=== PATIENT | female | born 1945 ===

== ENCOUNTER 2017-03-15 12:38 | Observation (INO) ==
--- NOTE | 2017-03-15 13:14 | Emergency Department Note ---
Nikita Morrell Emily, am scribing for, and in the presence of, Richie Pittman MD 13:12. Zain Morrell Phillip K, MD, personally performed the services described in this documentation, ascribed by Monique Shelton in my presence, and it is both accurate and complete . Arrival - Arrival Chief Complaint: Weakness Stated Complaint: weakness ED Nursing Triage Note: Transfer from [facility] ER for further evaluation of generalized weakness and slurred speech. Lorenzo found patient with slurred speech and weakness this am. Initial blood glucose 66mg/d, given D50 1/2 amp at [facility]. Speech clear, answering questions appropriately. c/o mild weakness. Equal strength noted to upper and lower extremities. Mode of Arrival: Stretcher Limitations: No Limitations Source: Patient - History of Present Illness HPI Narrative: Pt is a 72 y/o female who was transferred from [facility] to ED for further evaluation of generalized weakness that onset today. Lorenzo found pt with slurred speech and weakness this morning, in which could not walk at all. Pt's initial blood glucose 66mg/d, given D50 1/2 amp at [facility], along with negative CT. Pt's speech is clear and answering questions appropriately. She c/ o mild weakness but has improved some since being in ED. Pt denies vision change, stroke hx, or lower extremity edema. Pt states she able to hold onto things and these sxs haven't happened before. PMHx of HTN, NIDDM, IDDM, CHF, HLD. Onset (ago): hour(s) Consistency: constant Severity: mild, moderate Severity scale (1-10): 4 Quality: other (weakness) Date of Last Menstrual Period: PM Allergies/Adverse Reactions: Allergies Allergy/AdvReac Type Severity Reaction Status Date / Time No Known Allergies Allergy Verified 03/15/17 12:40 Home Medications: Home Medications Medication Instructions Recorded Confirmed Type Furosemide Tab [Lasix Tab] 80 mg PO DAILY #30 tablet 02/26/16 02/25/17 Rx Pantoprazole Tab [Protonix Tab] 40 mg PO DAILY #30 tablet 02/26/16 02/25/17 Rx hydrALAZINE TAB [Apresoline Tab] 25 mg PO BID #60 tablet 02/26/16 02/25/17 Rx Amitriptyline [Elavil] 25 mg PO BEDTIME 03/18/16 02/25/17 History Aspirin [Ecotrin] 81 mg PO DAILY 03/18/16 02/25/17 History Albuterol Inhaler [Proventil 2 puff INH Q6H PRN #1 inhaler 04/17/16 02/25/17 Rx Inhaler] Albuterol/Ipratropium Neb [Duoneb] 3 ml RESP TX TID #90 neb 04/17/16 02/25/17 Rx Atorvastatin [Lipitor] 40 mg PO DAILY tablet 04/17/16 02/25/17 Rx glipiZIDE [Glucotrol] 5 mg PO AC BREAKFAST #30 tablet 04/17/16 02/25/17 Rx Calcium Carbonate 600 mg PO BID 02/25/17 02/25/17 History Carvedilol 12.5 mg PO DAILY 02/25/17 02/25/17 History Review of System - Review of System 12 point system: reviewed and no additional remarkable complaints except as stated - Review of System Constitutional: Present: weakness (generalized). Absent: chills, fever Respiratory: Absent: respiratory distress Cardiovascular: Absent: chest pain Gastrointestinal: Absent: abdominal pain Musculoskeletal: Absent: arm pain Skin: Absent: rash Neurological: Present: weakness (lower extremities), other (slurred speech). Absent: headache, numbness, paresthesias, confusion Medical,Surgical,& Family Hx - Medical History Cardio: History of: CHF, Hypertension, [place] Endocrine: History of: Diabetes Mellitus (IDDM), Diabetes Mellitus (NIDDM), Dyslipidemia Respiratory: History of: Asthma, Bronchitis Renal: History of: Renal Failure, Renal Problems (chronic renal insufficiency) Genitourinary: History of: Kidney Stones Gastrointestinal: History of: GERD Musculoskeletal: History of: Osteoporosis Hematology: History of: Anemia - Surgical History Cardiac Surgeries: Sugical HX of: Cardiac Surgery (CABG) Patient Denies: Cardiac Catheterization Neurologic Surgeries: Patient denies: Neurologic Surgery Abdominal Surgeries: Surgical HX of: Abdominal Surgery, Appendectomy Reproductive Surgeries: Patient denies;: Genitourinary Surgery, Gynecologic Surgery - Family History Family History: Reports;: Family Diabetes, Family Heart Disease, Family Hypertension - Social History Smoking Status: Never smoker Frequency of Alcohol Use: None Type of Drug Use: None Marital Status: Single Lives With:: Children Functional capacity: independent ambulation Exam Vital Signs: Vital Signs Temperature 97.9 F 03/15/17 12:38 Pulse Rate 71 03/15/17 12:38 Respiratory Rate 20 03/15/17 12:38 Blood Pressure 146/85 03/15/17 12:38 O2 Sat by Pulse Oximetry 100 03/15/17 12:38 - General General appearance: alert, in no apparent distress - Head Head exam: Present: atraumatic, normocephalic - Eye Eye exam: Present: PERRL, EOMI - ENT ENT exam: Present: mucous membranes moist. Absent: mucous membranes dry - Neck Neck exam: Present: full ROM, trachea midline - Chest Chest inspection: Present: symmetric chest wall rise - Respiratory Respiratory exam: Present: normal lung sounds bilaterally. Absent: respiratory distress - Cardiovascular Cardiovascular exam: Present: regular rate, normal rhythm, normal heart sounds - Extremities Exam Extremities exam: Present: full ROM. Absent: tenderness, pedal edema - Neurological Exam Neurological exam: Present: alert, oriented X3, CN II-XII intact, other ( neurovascularly intact). Absent: motor sensory deficit - Psychiatric Psychiatric exam: Present: normal affect, normal mood - Skin Skin exam: Present: warm, dry Course Course Narrative: Patient discussed with the hospitalist. Results - Labs Lab Results: I have reviewed the patients labs (Labs reviewed from [facility].) - EKG EKG results: interpreted by KESHIA, sinus rhythm (Left bundle branch block) - Diagnostic Findings Procedure: CT: report reviewed by me (CT head scan done at [facility] revealed no acute intracranial abnormality.)
--- NOTE | 2017-03-15 14:04 | Hospitalist History & Physical ---
<Kourtney Gudinoda - Last Filed: 03/15/17 13:59> Assessment and Plan (1) Weakness Status: Acute Assessment and plan: Patient reports that this is an acute onset of weakness. Initial CT scan was negative; however the patient was noted to be hypoglycemic at the time of ED presentation with a blood sugar noted at 66. The state of hypoglycemia may be a attributing factor to the patient's weakness. We will conduct a stroke workup. We will obtain MRI in a.m.. In addition we will consult physical and Occupational Therapy to evaluate and treat. Current Visit: No (2) Chronic renal insufficiency Status: Chronic Assessment and plan: BUN and creatinine noted at 49/2.7. Upon review of the medical record, the patient's BUN and creatinine was noted at 63/3.00 on the last clinical encounter on February 27, 2017. This is a moderate decrease. We will monitor closely. Current Visit: No History of Present Illness Chief complaint: Weakness History of present illness: This is a chronically ill 72-year-old female that presented to the ED at [facility] this afternoon as a transfer from the [facility] for the further evaluation of generalized weakness and slurred speech. The patient has a complex medical history significant for congestive heart failure, hypertension, myocardial infarction, iqu-rjrxyvi-bajmezfth diabetes mellitus, dyslipidemia, asthma, bronchitis, chronic renal insufficiency , renal calculi, osteoporosis, anemia, and gastroesophageal reflux disease. Patient has a surgical history significant for coronary artery bypass graft and appendectomy. The patient reported the onset of symptoms earlier this morning upon arising. Apparently, the patient's grandson discovered the patient with slurred speech and profound weakness. He attempted to assist the patient up out of bed and the patient was unable to stand. He became alarmed and transported the patient to the [facility] for further evaluation. The patient was assessed at the time of ED presentation. The patient's blood glucose was noted at 66. The patient was then given one half amp of dextrose 50 %. Labs were obtained which were significant for BUN 49, creatinine 2.17, calcium 8.1, hemoglobin 10.9, hematocrit 35.1, and glucose of 66. CT head without contrast reported no evidence of acute intracranial hemorrhage however the presence of mild lucency in the cerebral white matter consistent with microvascular disease was noted. In addition the presence of a stable chronic right basal ganglia lacunar infarct was noted in marquis white differentiation is intact with no apparent evidence of mass. The patient was subsequently transferred to [facility] for further evaluation. The patient was assessed at the time of ED presentation at [place]. At the time of presentation, the patient was noted to be coherent with clear speech and able to answer questions appropriately. The patient reported an improvement in her weakness however, denies vision changes, shortness of breath , lower extremity edema, headache, chest pain, nausea, vomiting, or recent weight gain. After brief discussion with both Dr. Pittman and Dr. Long, the patient will be admitted to the hospitalist group for continuation of care. Due to the severity of the presenting factors, a neurology consultation has been requested. Home medications have been reviewed and reconciled. CODE STATUS discussed; patient is a FULL CODE. Home Medications Medication Instructions Recorded Confirmed Type Pantoprazole Tab [Protonix Tab] 40 mg PO DAILY #30 tablet 02/26/16 03/15/17 Rx hydrALAZINE TAB [Apresoline Tab] 25 mg PO BID #60 tablet 02/26/16 03/15/17 Rx Amitriptyline [Elavil] 25 mg PO BEDTIME 03/18/16 03/15/17 History Aspirin [Ecotrin] 81 mg PO DAILY 03/18/16 03/15/17 History Albuterol/Ipratropium Neb [Duoneb] 3 ml RESP TX TID #90 neb 04/17/16 03/15/17 Rx Atorvastatin [Lipitor] 40 mg PO DAILY tablet 04/17/16 03/15/17 Rx glipiZIDE [Glucotrol] 5 mg PO AC BREAKFAST #30 tablet 04/17/16 03/15/17 Rx Calcium Carbonate 600 mg PO BID 02/25/17 03/15/17 History Carvedilol 12.5 mg PO BID 02/25/17 03/15/17 History Furosemide Tab [Lasix Tab] 80 mg PO QAM 03/15/17 03/15/17 History Allergies Allergy/AdvReac Type Severity Reaction Status Date / Time No Known Allergies Allergy Verified 03/15/17 12:40 Medical,Surgical,& Family Hx - Medical History Cardio: History of: CHF, Hypertension, [place] Endocrine: History of: Diabetes Mellitus (IDDM), Diabetes Mellitus (NIDDM), Dyslipidemia Respiratory: History of: Asthma, Bronchitis Renal: History of: Renal Failure, Renal Problems (chronic renal insufficiency) Genitourinary: History of: Kidney Stones Gastrointestinal: History of: GERD Musculoskeletal: History of: Osteoporosis Hematology: History of: Anemia - Surgical History Cardiac Surgeries: Sugical HX of: Cardiac Surgery (CABG) Patient Denies: Cardiac Catheterization Neurologic Surgeries: Patient denies: Neurologic Surgery Abdominal Surgeries: Surgical HX of: Abdominal Surgery, Appendectomy Reproductive Surgeries: Patient denies;: Genitourinary Surgery, Gynecologic Surgery - Family History Family History: Reports;: Family Diabetes, Family Heart Disease, Family Hypertension - Social History Smoking Status: Never smoker Frequency of Alcohol Use: None Type of Drug Use: None Marital Status: Single Lives With:: Children Functional capacity: independent ambulation 12 point system: reviewed and no additional remarkable complaints except as stated Exam - Constitutional Vitals: Period Temp Pulse Resp BP Sys/Edgar Pulse Ox Last 24 Hr 97.9 F-97.9 F 71-71 20-20 146-146/85-85 100 General appearance: normal weight, no acute distress - Head Head exam: Present: normal inspection, normocephalic, atraumatic - Eye Eye exam: Present: EOMI. Absent: conjunctival injection Pupils: Present: JACE, normal accommodation - ENT ENT exam: Present: normal exam, normal external ear exam, normal oropharynx - Neck Neck exam: Present: normal inspection. Absent: lymphadenopathy, meningismus, tenderness, thyromegaly - Respiratory Respiratory exam: Present: clear to auscultation bilaterally. Absent: rales, rhonchi, stridor, wheezes - Cardiovascular Cardiovascular exam: Present: regular rate and rhythm. Absent: carotid bruit, diastolic murmur, gallop, JVD, rubs, systolic murmur - GI/Abdominal GI/Abdominal exam: Present: normal bowel sounds - Extremities Exam Extremities exam: Present: normal inspection, normal capillary refill, full ROM. Absent: edema - Back Exam Back exam: Present: normal inspection - Neurological Exam Neurological exam: Present: alert, oriented X3, altered, CN II-XII intact - Psychiatric Psychiatric exam: Present: normal affect, normal mood - Skin Skin exam: Present: normal color, warm, dry Results - Labs Lab Results: I have reviewed the past 24 hour labs <Abram Long - Last Filed: 03/15/17 15:37> History of Present Illness History of present illness: Ms. Tipton is a 72 year old female who was admitted to the hospital with the acute onset of weakness and slurred speech. Evaluation in the emergency department included a CT scan of the head demonstrating no acute abnormalities and a blood glucose of 66. She has a previously known history of type 2 diabetes mellitus. At the present time her weakness persists, but has improved , and her slurred speech has disappeared. I have interviewed the patient, examined the patient, and reviewed all the available laboratory and radiographic test results. I agree with the assessment and plan of Juan Alberto Gudino. Exam - Constitutional Vitals: Period Temp Pulse Resp BP Sys/Edgar Pulse Ox Last 24 Hr 97.9 F-97.9 F 69-75 16-20 132-146/65-85 100-100
[2017-03-15 15:10] LABS: Risk Ratio 3.31; VLDL CHOLESTEROL 25.2 MG/DL
[2017-03-15 15:12] LABS: Troponin I Only 0.09 NG/ML (0.00-0.045)
[2017-03-15] MEDS ORDERED: DEXTROSE 50% 25 GM/50 ML VIAL IV PRN ×2 (17:04)
[2017-03-15] MEDS ORDERED: GLUCAGON 1 MG VIAL IM PRN ×2 (17:04)
[2017-03-15] MEDS: ALBUTEROL/IPRATROPIUM 3 ML NEB RESP TX SCH (19:45)
[2017-03-15] MEDS: CALCIUM (CARBONATE) 600 MG TABLET PO SCH (21:33)
[2017-03-15] MEDS: CARVEDILOL 12.5 MG TABLET PO SCH (21:33)
[2017-03-15] MEDS: hydrALAZINE 25 MG TABLET PO SCH (21:33)
[2017-03-15] MEDS: AMITRIPTYLINE 25 MG TABLET PO SCH (21:33)
[2017-03-15] MEDS: INSULIN REGULAR 100 UNIT/ML SUBCUT SCH (22:11)
[2017-03-16] MEDS: ALBUTEROL/IPRATROPIUM 3 ML NEB RESP TX SCH ×3 (07:22→19:37)
[2017-03-16] MEDS: ASPIRIN EC 81 MG TABLET PO SCH (08:15)
[2017-03-16] MEDS: PANTOPRAZOLE 40 MG TABLET PO SCH (08:15)
[2017-03-16] MEDS: INSULIN REGULAR 100 UNIT/ML SUBCUT SCH ×4 (08:15→22:04)
[2017-03-16] MEDS: CALCIUM (CARBONATE) 600 MG TABLET PO SCH ×2 (08:15→21:51)
[2017-03-16] MEDS: ATORVASTATIN 40 MG TABLET PO SCH (08:15)
[2017-03-16] MEDS: hydrALAZINE 25 MG TABLET PO SCH ×2 (08:15→21:51)
[2017-03-16] MEDS: CARVEDILOL 12.5 MG TABLET PO SCH ×2 (08:15→21:51)
[2017-03-16] MEDS: FUROSEMIDE 80 MG TABLET PO SCH (08:18)
[2017-03-16 08:45] LABS: Basophils # 0.1 10*3/uL (0.0-0.2); Basophils % 0.7 % (0.0-0.8); Eosinophils # 0.1 10*3/uL (0.0-0.87); Eosinophils % 1.5 % (0.00-10.9); Hematocrit 29.3 VOL% (35.7-47.0); Hemoglobin 9.5 GM/DL (12.0-16.0); Immature Granulocytes % 0.5 %; Immature Granulocytes Absolute 0.04 #; Lymphocytes % 23.2 % (21.3-54.2); Mean Corpuscular HGB Conc 32.4 GM/DL (32-36); Mean Corpuscular Hemoglobin 29 PG (27-34); Mean Corpuscular Volume 90.2 FL (87-102); Monocytes # 0.7 10*3/uL (0.11-0.8); Monocytes % 8.5 % (1.7-12.7); Neutrophils # 5.5 10*3/uL (1.4-7.4); Neutrophils % 65.6 % (38.7-73.9); Platelet Count 283 T/CUMM (130-400); Red Blood Count 3.25 MC/CUMM (3.8-5.5); Red Cell Distribution Width 14.9 % (9.3-17.3); White Blood Count 8.4 T/CUMM (4-12)
--- NOTE | 2017-03-16 10:04 | Ultrasound Report ---
Exam: US carotid duplex BI Date: 03/16/2017 8:49 AM Indication: Findings: Grayscale color flow analysis and spectral analysis imaging was performed with image stored and captured. Right Side Flow velocities centimeters per second Common carotid artery: 95 Proximal ICA: 160.2 Distal ICA: 170.1 External carotid artery: 315.7 Vertebral artery: 57.2 ICA/CCA ratio: 1.8 Measurements in millimeters Distal ICA: 5.5 Left SIde Flow velocities centimeters per second Common carotid artery: 139 Proximal ICA: 164.7 Distal ICA: 160.1 External carotid artery: 157.8 Vertebral artery: 122.7 ICA/CCA ratio: 1.2 Measurements in millimeters Distal ICA: 2.9 Grayscale color flow analysis present. Mild intimal hyperplasia the common carotid arteries. Normal appearance with color flow with no spectral broadening present. Impression: 1. 16-49% stenosis bilaterally Today studies were performed utilizing indirect NASCET criteria The ultrasound images were stored and captured PROCEDURE INTERPRETED AT [facility] DEPARTMENT OF RADIOLOGY Final Report Signed by: Dr. Julien Anand
--- NOTE | 2017-03-16 11:34 | Magnetic Resonance Report ---
Exam: MRI brain without contrast Exam date: March 16, 2017 at 1056 hours Indication: Weakness and altered mental status Comparison: No relevant comparisons Technique: Multiplanar, multisequence magnetic resonance imaging of the brain without intravenous contrast was performed in routine fashion. Axial, coronal and sagittal images submitted for interpretation Findings: Parenchyma: No mass or midline shift. No intra or extra-axial. Generalized atrophy with patchy and confluent areas of T2/FLAIR signal abnormality mild microangiopathic small vessel ischemic disease. No abnormal enhancement Ventricles and sulci: Normal in size and configuration Posterior fossa: Cerebellum, brainstem and cervicomedullary junction are preserved Orbits and sinuses: Globes and orbits are intact. Periorbital and pericavernous spaces are normal. Mild inflammatory changes involving the paranasal sinuses Sella: Pituitary is normal. Osseous: No abnormality of the skull base or calvarium is identified Impression: 1. Atrophy with mild microangiopathic small vessel ischemic changes 2. No acute intracranial abnormality, specifically no evidence of mass, hemorrhage or infarction 3. Paranasal sinus inflammatory changes PROCEDURE INTERPRETED AT [facility] DEPARTMENT OF RADIOLOGY Final Report Signed by: Shaheed Pino
--- NOTE | 2017-03-16 15:25 | ECHO Report ---
Danuta Marissa Exam Date: 03/16/2017 07:49 Referring Physician: Technologist: gil Zabala ARDMS, RVT Age: 72 Ht (in): 59 Wt (lb): 147 Gender: F Exam Location: [facility], [place] Echo Indications: Weakness, Slurred speech, Chronic renal insufficiency BP: 127 / 56 HR: 86 Rhythm: Sinus Technical Quality: Good IMPRESSIONS Left ventricular ejection fraction is estimated at 20 %. Mildly increased left ventricular cavity size. Mildly increased right ventricular size. The right atrium is mildly enlarged. The left atrium is 2 + enlarged. Mild mitral valve regurgitation. Aortic valve sclerosis without stenosis or regurgitation. Moderate tricuspid valve regurgitation. Tricuspid regurgitation velocities suggest a PAP of 64 mmHg. Ytos-mx-[id number] pulmonary valve regurgitation. No definite mass or thrombus is seen MEASUREMENTS (Male / Female) Normal Values 2D ECHO LV Diastolic Diameter PLAX 5.6 cm 4.2 - 5.9 / 3.9 - 5.3 cm LV Systolic Diameter PLAX 5.0 cm LV Fractional Shortening PLAX 9.8 % IVS Diastolic Thickness 0.8 cm 0.6 - 1.0 / 0.6 - 0.9 cm LVPW Diastolic Thickness 1.1 cm 0.6 - 1.0 / 0.6 - 0.9 cm RV Internal Dim ED PLAX 3.9 cm Aortic Root Diameter 2.6 cm LA Systolic Diameter LX 4.8 cm 3.0 - 4.0 / 2.7 - 3.8 cm DOPPLER TR Peak Velocity 366.0 cm/s TR Peak Gradient 53.6 mmHg FINDINGS Left Ventricle Mildly increased left ventricular cavity size. Normal left ventricular wall thickness. Left ventricular ejection fraction is estimated at 20 %. Right Ventricle Mildly increased right ventricular size. Right Atrium The right atrium is mildly enlarged. Left Atrium The left atrium is 2 + enlarged. Mitral Valve Morphologically normal mitral valve. Mild mitral annular calcification. Mild mitral valve regurgitation. Aortic Valve Aortic valve sclerosis without stenosis or regurgitation. Tricuspid Valve Morphologically normal tricuspid valve. Moderate tricuspid valve regurgitation. Tricuspid regurgitation velocities suggest a PAP of 64 mmHg. Pulmonic Valve Morphologically normal pulmonic valve without significant stenosis. [id number] pulmonary valve regurgitation. Pericardium Normal pericardium without effusion. Aorta Normal ascending aorta dimension. Michael Babb MD (Electronically Signed) Final Date: 16 March 2017 15:25
--- NOTE | 2017-03-16 17:57 | Hospitalist Progress Note ---
Hospitalist: Subjective Interval history: Patient is awake and alert and comfortable. She denies any chest pain or shortness of breath. She is has history of CHF and CAD. She was admitted with generalized weakness, stroke workup has been negative Exam - Constitutional Vitals: Period Temp Pulse Resp BP Sys/Edgar Pulse Ox Last 24 Hr 96.9 F-97.6 F 56-71 14-20 113-127/45-61 96-100 Exam: General: No Acute Distress HEENT: Normocephalic, atraumatic, Extra ocular movements intact Neck: Supple, No JVD Chest: Clear to auscultation B/L CV: S1 + S2 audible without murmur, gallop or rub Abd: soft, NT, Non-distended, BS + Ext: Trace edema Skin: No purpura, bruising or rash Rheumatologic: No Joint deformities Neurologic: Strength 5/5 all extremities, no gross sensory deficits Results - Labs CBC & BMP: 03/16/17 08:15 - Impressions Assessment and Plan (1) Generalized weakness Status: Acute Assessment and plan: Patient states that she is feeling better. MRI of the brain was unremarkable carotid ultrasound did not show any significant stenosis Current Visit: No (2) chronic kidney disease stage IV Status: Chronic Assessment and plan: BUN and creatinine noted at 49/2.7, this is actually better than her baseline Current Visit: No (3) Chronic systolic congestive heart failure and cardiomyopathy Status: Chronic Assessment and plan: Baseline ejection fraction is 20%, will continue her home medication. Will check cardiac enzymes Current Visit: No
--- NOTE | 2017-03-16 18:57 | XRay Report ---
History: CHF Date: 03/16/2017 Study: Chest x-ray single view portable Comparison exam: February 27, 2017 There is cardiomegaly. The pulmonary vasculature is slightly prominent. The mediastinal contours are stable in this patient status post prior median sternotomy. There is some minimal hazy edema in the lower lungs. There is no gross pleural effusion. Osseous structures are unchanged. Impression: Cardiomegaly and evidence of CHF with some mild bibasilar pulmonary edema PROCEDURE INTERPRETED AT [facility] DEPARTMENT OF RADIOLOGY Final Report Signed by: Dr. Gretta Vitale
[2017-03-16] MEDS: AMITRIPTYLINE 25 MG TABLET PO SCH (21:51)
[2017-03-17 04:28] LABS: Calcium 7.7 MG/DL (8.5-10.1); Osmolality,Calculated 291.7 MOS/KG (273-304); Potassium 4.2 MMOL/L (3.5-5.1)
[2017-03-17 04:31] LABS: Troponin I Only 0.077 NG/ML (0.00-0.045)
[2017-03-17] MEDS: ALBUTEROL/IPRATROPIUM 3 ML NEB RESP TX SCH ×2 (07:39→13:56)
[2017-03-17] MEDS: ASPIRIN EC 81 MG TABLET PO SCH (08:57)
[2017-03-17] MEDS: CARVEDILOL 12.5 MG TABLET PO SCH (08:57)
[2017-03-17] MEDS: hydrALAZINE 25 MG TABLET PO SCH (08:58)
[2017-03-17] MEDS: FUROSEMIDE 80 MG TABLET PO SCH (08:58)
[2017-03-17] MEDS: ATORVASTATIN 40 MG TABLET PO SCH (08:58)
[2017-03-17] MEDS: INSULIN REGULAR 100 UNIT/ML SUBCUT SCH ×3 (08:58→16:31)
[2017-03-17] MEDS: CALCIUM (CARBONATE) 600 MG TABLET PO SCH (08:58)
[2017-03-17] MEDS: PANTOPRAZOLE 40 MG TABLET PO SCH (08:58)
--- NOTE | 2017-03-17 13:55 | EKG Report ---
Stationary ECG Study [facility] ER Test Date: 03/15/2017 1:04:05 PM Pat Name: SHASHANK JOSHI Department: Room: 542 Gender: F 911 Emergency Services Dispatcher: : 1945 Requested by: Richie Jennings Order Number: [id number] Reading MD: MARTELL ALVARADO Intervals [place] Rate: 70 P: 30 [place]: 129 QRS: 115 QRSD: 164 T: -45 QT: 478 QTc: 499 Interpretive Statements SINUS RHYTHM LEFT BUNDLE BRANCH BLOCK Electronically Signed On 03-18-17 09:03:00 CDT by MARTELL ALVARADO [email or web address]
--- NOTE | 2017-03-17 14:10 | Discharge Summary ---
Hospital Course - Hospital Course Hospital Course: 72-year-old female that presented to the ED at [facility] this afternoon as a transfer from the [facility] for the further evaluation of generalized weakness. The patient has a complex medical history significant for congestive heart failure, hypertension, myocardial infarction, [id number] diabetes mellitus, dyslipidemia, asthma, bronchitis, chronic renal insufficiency, renal calculi, osteoporosis, anemia, and gastroesophageal reflux disease. Patient has a surgical history significant for coronary artery bypass graft and appendectomy. Patient was admitted to the hospital. She had a stroke workup including MRI of the brain did not show any evidence of stroke. Carotid ultrasound did not show any significant stenosis. She has CHF and cardiomyopathy and chronic kidney disease stage IV. Baseline ejection fraction is 20%. She had no chest pain or shortness of breath. Her troponins are mildly chronically elevated due to her renal failure, there was no evidence of acute coronary syndrome. Patient generalized weakness has resolved she is feeling much better. [facility] that she has reached maximal hospital benefit and being discharged home to continue to continue her medication and follow-up with her doctors. - Time spent with patient Time with patient DS: Less than 30 minutes Discharge Plan - Discharge Data Condition at Discharge: Stable Discharge Diet: low salt diet Activity: resume usual activities as tolerated Hygiene: no restrictions Weight Bearing at Discharge: full weight bearing Driving: no restrictions - Discharge Medications Continue Pantoprazole Tab [Protonix Tab] 40 mg PO DAILY #30 tablet hydrALAZINE TAB [Apresoline Tab] 25 mg PO BID #60 tablet Amitriptyline [Elavil] 25 mg PO BEDTIME Aspirin [Ecotrin] 81 mg PO DAILY Atorvastatin [Lipitor] 40 mg PO DAILY tablet glipiZIDE [Glucotrol] 5 mg PO AC BREAKFAST #30 tablet Albuterol/Ipratropium Neb [Duoneb] 3 ml RESP TX TID #90 neb Calcium Carbonate 600 mg PO BID Carvedilol 12.5 mg PO BID Furosemide Tab [Lasix Tab] 80 mg PO QAM - Follow Up or Referral - Forms/Instructions Exam - Constitutional Vitals: Period Temp Pulse Resp BP Sys/Edgar Pulse Ox Last 24 Hr 97.8 F-98.6 F 57-78 16-20 102-157/54-71 96-100 Exam: General: No Acute Distress HEENT: Normocephalic, atraumatic, Extra ocular movements intact Neck: Supple, No JVD Chest: Clear to auscultation B/L CV: S1 + S2 audible without murmur, gallop or rub Abd: soft, NT, Non-distended, BS + Ext: No edema Skin: No purpura, bruising or rash Rheumatologic: No Joint deformities Neurologic: Strength 5/5 all extremities, no gross sensory deficits Discharge Results Labs on day of discharge: Labs from last 24 hours 03/17/17 03/17/17 03/17/17 11:05 09:49 07:31 Sodium Potassium Chloride Carbon Dioxide Anion Gap BUN Creatinine GFR Calculation BUN/Creatinine Ratio Glucose POC Glucose 202 H 145 H Calculated Osmolality Calcium Total Creatine Kinase 34 CK-MB (CK-2) 1.4 Troponin I 0.070 H B-Natriuretic Peptide 03/17/17 03/17/17 03/17/17 02:24 02:24 02:24 Sodium 138 Potassium 4.2 Chloride 107 Carbon Dioxide 22 Anion Gap 13.2 BUN 59 H Creatinine 3.00 H GFR Calculation 14 BUN/Creatinine Ratio 19.00 Glucose 107 H POC Glucose Calculated Osmolality 291.7 Calcium 7.7 L Total Creatine Kinase 31 CK-MB (CK-2) 1.1 Troponin I 0.077 H B-Natriuretic Peptide 1249 H 03/16/17 03/16/17 21:08 16:36 Sodium Potassium Chloride Carbon Dioxide Anion Gap BUN Creatinine GFR Calculation BUN/Creatinine Ratio Glucose POC Glucose 169 H 247 H Calculated Osmolality Calcium Total Creatine Kinase CK-MB (CK-2) Troponin I B-Natriuretic Peptide DS: Provider Date of admission: 03/15/17 13:14 Primary care physician: Cherie Franco MD Attending physician on admission: Abram Long Consults: 03/15/17 14:21 Consult to Case Mgmt/Social Srvs [CONS] Routine Reason for Case Mgmt/Social Srvs: Discharge Planning Consult to Occupational Therapy [CONS] Routine Reason for Occupational Therapy: Evaluate and Treat Consult Comment: Stroke Consult to Physical Therapy [CONS] Routine Reason for Physical Therapy: Evaluate and Treat Consult Comment: stroke Discharging clinician: Lina Suarez MD
[2017-03-17 15:43] VITALS: BP 130/61
== END 2017-03-17 17:00 | disposition home or self-care (01) ==
LOC: EDUNIT# → EDBD → N.ED 12:38 → SUATTDRO 13:14 → N.EDINP 13:14 → INTOOBSV 13:14 → N.5E 14:48
PROVIDERS: ATTEND Hospitalist

== ENCOUNTER 2017-05-30 12:40 | Observation (INO) ==
[2017-05-30] MEDS ORDERED: ACETAMINOPHEN 325 MG TABLET PO PRN (15:27)
[2017-05-30] MEDS ORDERED: NITROGLYCERIN SL 0.4 MG TABLET SL PRN (15:27)
[2017-05-30] MEDS ORDERED: MORPHINE 2 MG/1 ML SYRINGE IV PRN (16:00)
[2017-05-30 16:12] LABS: Basophils # 0.1 10*3/uL (0.0-0.2); Eosinophils # 0.1 10*3/uL (0.0-0.87); Eosinophils % 1.6 % (0.00-10.9); Hematocrit 32.5 VOL% (35.7-47.0); Hemoglobin 10.5 GM/DL (12.0-16.0); Immature Granulocytes % 0.4 %; Immature Granulocytes Absolute 0.03 #; Lymphocytes # 2.2 10*3/uL (1.4-4.0); Lymphocytes % 29.6 % (21.3-54.2); Mean Corpuscular HGB Conc 32.3 GM/DL (32-36); Mean Corpuscular Hemoglobin 30 PG (27-34); Mean Corpuscular Volume 94.2 FL (87-102); Monocytes # 0.4 10*3/uL (0.11-0.8); Monocytes % 5.6 % (1.7-12.7); Neutrophils # 4.6 10*3/uL (1.4-7.4); Neutrophils % 61.8 % (38.7-73.9); Platelet Count 213 T/CUMM (130-400); Red Blood Count 3.45 MC/CUMM (3.8-5.5); Red Cell Distribution Width 15.7 % (9.3-17.3); White Blood Count 7.4 T/CUMM (4-12)
[2017-05-30 16:40] LABS: Calcium 8.6 MG/DL (8.5-10.1); Magnesium 2.1 MG/DL (1.8-2.4); Osmolality,Calculated 293.4 MOS/KG (273-304); Potassium 4.9 MMOL/L (3.5-5.1); Thyroid Stimulating Hormone 9.84 uIU/ml (0.358-3.74)
[2017-05-30] MEDS ORDERED: DEXTROSE 50% 25 GM/50 ML VIAL IV PRN (16:45)
[2017-05-30] MEDS ORDERED: GLUCAGON 1 MG VIAL IM PRN (16:45)
[2017-05-30] MEDS: FUROSEMIDE 40 MG/4 ML VIAL IV SCH (17:19)
[2017-05-30] MEDS: DICLOFENAC 1% GEL 100 GM TUBE TOP SCH ×2 (17:21→20:58)
[2017-05-30] MEDS: INSULIN LISPRO 100 UNIT/ML SUBCUT SCH (20:00)
[2017-05-30] MEDS: hydrALAZINE 25 MG TABLET PO SCH (20:59)
[2017-05-30] MEDS: CARVEDILOL 6.25 MG TABLET PO SCH (20:59)
[2017-05-30] MEDS: AMITRIPTYLINE 25 MG TABLET PO SCH (20:59)
[2017-05-30] MEDS: CALCIUM (CARBONATE) 600 MG TABLET PO SCH (20:59)
[2017-05-30] MEDS: ATORVASTATIN 40 MG TABLET PO SCH (20:59)
[2017-05-30] MEDS: ISOSORBIDE DINITRATE 20 MG TABLET PO SCH (20:59)
[2017-05-30] MEDS ORDERED: hydrALAZINE 25 MG TABLET PO SCH (21:00)
[2017-05-31 04:34] LABS: Basophils # 0.1 10*3/uL (0.0-0.2); Basophils % 0.9 % (0.0-0.8); Eosinophils # 0.4 10*3/uL (0.0-0.87); Eosinophils % 5.8 % (0.00-10.9); Hematocrit 26.8 VOL% (35.7-47.0); Hemoglobin 8.9 GM/DL (12.0-16.0); Immature Granulocytes % 0.4 %; Immature Granulocytes Absolute 0.03 #; Lymphocytes # 2.5 10*3/uL (1.4-4.0); Lymphocytes % 36.2 % (21.3-54.2); Mean Corpuscular HGB Conc 33.2 GM/DL (32-36); Mean Corpuscular Hemoglobin 30 PG (27-34); Mean Corpuscular Volume 91.2 FL (87-102); Mean Platelet Volume 10.2 FL (9.6-12.0); Monocytes # 0.6 10*3/uL (0.11-0.8); Monocytes % 8.2 % (1.7-12.7); Neutrophils # 3.4 10*3/uL (1.4-7.4); Neutrophils % 48.5 % (38.7-73.9); Platelet Count 191 T/CUMM (130-400); Red Blood Count 2.94 MC/CUMM (3.8-5.5); Red Cell Distribution Width 15.7 % (9.3-17.3); White Blood Count 6.9 T/CUMM (4-12)
[2017-05-31 05:41] LABS: Magnesium 1.9 MG/DL (1.8-2.4); Osmolality,Calculated 291.4 MOS/KG (273-304); Potassium 4.5 MMOL/L (3.5-5.1)
[2017-05-31 05:58] LABS: Risk Ratio 2.93
[2017-05-31] MEDS: INSULIN LISPRO 100 UNIT/ML SUBCUT SCH ×4 (08:14→20:10)
[2017-05-31] MEDS ORDERED: FUROSEMIDE 80 MG TABLET PO SCH (09:00)
[2017-05-31] MEDS ORDERED: ASPIRIN EC 81 MG TABLET PO SCH (09:00)
[2017-05-31] MEDS: hydrALAZINE 25 MG TABLET PO SCH ×3 (09:02→21:32)
[2017-05-31] MEDS: ATORVASTATIN 40 MG TABLET PO SCH (09:02)
[2017-05-31] MEDS: CALCIUM (CARBONATE) 600 MG TABLET PO SCH ×2 (09:02→21:32)
[2017-05-31] MEDS: ASPIRIN EC 81 MG TABLET PO SCH (09:02)
[2017-05-31] MEDS: ISOSORBIDE DINITRATE 20 MG TABLET PO SCH ×3 (09:02→21:32)
[2017-05-31] MEDS: glipiZIDE 5 MG TABLET PO SCH (09:02)
[2017-05-31] MEDS: FUROSEMIDE 40 MG/4 ML VIAL IV SCH ×2 (09:02→16:18)
[2017-05-31] MEDS: CARVEDILOL 6.25 MG TABLET PO SCH ×2 (09:02→21:32)
[2017-05-31] MEDS: DICLOFENAC 1% GEL 100 GM TUBE TOP SCH ×4 (09:02→21:32)
[2017-05-31] MEDS: AMITRIPTYLINE 25 MG TABLET PO SCH (21:32)
[2017-06-01 05:42] LABS: Basophils # 0.1 10*3/uL (0.0-0.2); Basophils % 0.6 % (0.0-0.8); Eosinophils # 0.8 10*3/uL (0.0-0.87); Eosinophils % 9.7 % (0.00-10.9); Hematocrit 25.8 VOL% (35.7-47.0); Hemoglobin 8.5 GM/DL (12.0-16.0); Immature Granulocytes % 0.4 %; Immature Granulocytes Absolute 0.03 #; Lymphocytes % 24.3 % (21.3-54.2); Mean Corpuscular HGB Conc 32.9 GM/DL (32-36); Mean Corpuscular Hemoglobin 30 PG (27-34); Mean Corpuscular Volume 91.5 FL (87-102); Mean Platelet Volume 9.8 FL (9.6-12.0); Monocytes # 0.7 10*3/uL (0.11-0.8); Monocytes % 8.3 % (1.7-12.7); Neutrophils # 4.6 10*3/uL (1.4-7.4); Neutrophils % 56.7 % (38.7-73.9); Platelet Count 197 T/CUMM (130-400); Red Blood Count 2.82 MC/CUMM (3.8-5.5); Red Cell Distribution Width 15.7 % (9.3-17.3); White Blood Count 8.2 T/CUMM (4-12)
[2017-06-01 06:11] LABS: Calcium 7.9 MG/DL (8.5-10.1); Osmolality,Calculated 292.7 MOS/KG (273-304); Potassium 4.2 MMOL/L (3.5-5.1)
[2017-06-01] MEDS: glipiZIDE 5 MG TABLET PO SCH (07:21)
[2017-06-01] MEDS: INSULIN LISPRO 100 UNIT/ML SUBCUT SCH ×2 (08:20→12:25)
[2017-06-01] MEDS: FUROSEMIDE 40 MG/4 ML VIAL IV SCH ×2 (08:25→15:58)
[2017-06-01] MEDS: ATORVASTATIN 40 MG TABLET PO SCH (08:30)
[2017-06-01] MEDS: CALCIUM (CARBONATE) 600 MG TABLET PO SCH (08:30)
[2017-06-01] MEDS: ASPIRIN EC 81 MG TABLET PO SCH (08:30)
[2017-06-01] MEDS: ISOSORBIDE DINITRATE 20 MG TABLET PO SCH ×2 (08:30→14:15)
[2017-06-01] MEDS: hydrALAZINE 25 MG TABLET PO SCH ×2 (08:30→14:15)
[2017-06-01] MEDS: CARVEDILOL 6.25 MG TABLET PO SCH (08:30)
[2017-06-01] MEDS: DICLOFENAC 1% GEL 100 GM TUBE TOP SCH ×2 (08:31→14:14)
[2017-06-01 15:58] VITALS: BP 143/68
== END 2017-06-01 15:57 | disposition home or self-care (01) ==
LOC: N.TELEN → SUATTDRO 14:51
PROVIDERS: ADMIT Internal Medicine

== ENCOUNTER 2017-06-23 17:06 | Inpatient (IN) ==
[2017-06-23 18:01] LABS: Troponin I Only 0.182 NG/ML (0.00-0.045)
[2017-06-23] MEDS ORDERED: HYDROmorphone 2 MG/1 ML VIAL IV PRN (20:58)
[2017-06-23] MEDS ORDERED: GLUCAGON 1 MG VIAL IM PRN (20:58)
[2017-06-23] MEDS ORDERED: DEXTROSE 50% 25 GM/50 ML VIAL IV PRN (20:58)
[2017-06-23] MEDS: ATORVASTATIN 80 MG TABLET PO SCH (21:36)
[2017-06-23] MEDS: hydrALAZINE 25 MG TABLET PO SCH (21:36)
[2017-06-23] MEDS: CARVEDILOL 6.25 MG TABLET PO SCH (21:36)
[2017-06-23] MEDS: INSULIN REGULAR 100 UNIT/ML SUBCUT SCH (21:37)
[2017-06-23 22:23] LABS: Troponin I Only 0.192 NG/ML (0.00-0.045)
[2017-06-24 07:13] LABS: Troponin I Only 0.184 NG/ML (0.00-0.045)
[2017-06-24 07:18] LABS: Calcium 7.6 MG/DL (8.5-10.1); Potassium 4.7 MMOL/L (3.5-5.1)
[2017-06-24] MEDS ORDERED: glipiZIDE 5 MG TABLET PO SCH (07:30)
[2017-06-24] MEDS: INSULIN REGULAR 100 UNIT/ML SUBCUT SCH ×4 (08:43→21:46)
[2017-06-24] MEDS: hydrALAZINE 25 MG TABLET PO SCH ×2 (08:43→21:46)
[2017-06-24] MEDS: CLOPIDOGREL 75 MG TABLET PO SCH (08:43)
[2017-06-24] MEDS: CARVEDILOL 6.25 MG TABLET PO SCH ×2 (08:43→21:46)
[2017-06-24] MEDS ORDERED: ASPIRIN 325 MG TABLET PO SCH (09:00)
[2017-06-24] MEDS ORDERED: PANTOPRAZOLE 40 MG TABLET PO SCH (09:00)
[2017-06-24] MEDS: ONDANSETRON 4 MG/2 ML VIAL IV PRN ×2 (12:23→15:27)
[2017-06-24] MEDS: ENOXAPARIN 40 MG/0.4 ML SYRINGE SUBCUT SCH (15:22)
[2017-06-24] MEDS ORDERED: ALUMINUM/MAGNES/SIMETH MAX STR 30 ML UDCUP PO PRN (15:51)
[2017-06-24] MEDS ORDERED: ACETAMINOPHEN 325 MG TABLET PO PRN (17:54)
[2017-06-24] MEDS ORDERED: ONDANSETRON ODT 4 MG TABLET PO PRN (17:54)
[2017-06-24] MEDS: FUROSEMIDE 40 MG/4 ML VIAL IV SCH (18:12)
[2017-06-24] MEDS: FAMOTIDINE 20 MG TABLET PO SCH (21:45)
[2017-06-24] MEDS: AMITRIPTYLINE 25 MG TABLET PO SCH (21:45)
[2017-06-24] MEDS: ATORVASTATIN 80 MG TABLET PO SCH (21:45)
[2017-06-24] MEDS: ISOSORBIDE DINITRATE 20 MG TABLET PO SCH (21:45)
[2017-06-24] MEDS: CALCIUM (CARBONATE) 600 MG TABLET PO SCH (21:45)
[2017-06-24] MEDS: DOCUSATE SODIUM 100 MG CAPSULE PO SCH (21:46)
[2017-06-24] MEDS: DICLOFENAC 1% GEL 100 GM TUBE TOP SCH (21:57)
[2017-06-25] MEDS: FUROSEMIDE 40 MG/4 ML VIAL IV SCH ×2 (09:36→15:28)
[2017-06-25] MEDS: ISOSORBIDE DINITRATE 20 MG TABLET PO SCH ×3 (09:37→21:01)
[2017-06-25] MEDS: ASPIRIN EC 81 MG TABLET PO SCH (09:37)
[2017-06-25] MEDS: PANTOPRAZOLE 40 MG TABLET PO SCH (09:37)
[2017-06-25] MEDS: CARVEDILOL 6.25 MG TABLET PO SCH ×2 (09:37→21:01)
[2017-06-25] MEDS: CLOPIDOGREL 75 MG TABLET PO SCH (09:37)
[2017-06-25] MEDS: glipiZIDE 5 MG TABLET PO SCH (09:38)
[2017-06-25] MEDS: DOCUSATE SODIUM 100 MG CAPSULE PO SCH ×2 (09:38→21:03)
[2017-06-25] MEDS: CALCIUM (CARBONATE) 600 MG TABLET PO SCH ×2 (09:38→21:03)
[2017-06-25] MEDS: hydrALAZINE 25 MG TABLET PO SCH ×2 (09:38→21:01)
[2017-06-25 10:08] LABS: Basophils % 0.5 % (0.0-0.8); Eosinophils # 0.3 10*3/uL (0.0-0.87); Immature Granulocytes % 0.2 %; Immature Granulocytes Absolute 0.01 #; Lymphocytes # 1.5 10*3/uL (1.4-4.0); Lymphocytes % 26.3 % (21.3-54.2); Mean Corpuscular HGB Conc 32.1 GM/DL (32-36); Mean Corpuscular Hemoglobin 31 PG (27-34); Mean Corpuscular Volume 95.9 FL (87-102); Mean Platelet Volume 10.3 FL (9.6-12.0); Monocytes # 0.5 10*3/uL (0.11-0.8); Monocytes % 8.4 % (1.7-12.7); Neutrophils # 3.5 10*3/uL (1.4-7.4); Neutrophils % 59.6 % (38.7-73.9); Platelet Count 170 T/CUMM (130-400); Red Blood Count 2.92 MC/CUMM (3.8-5.5); Red Cell Distribution Width 16.5 % (9.3-17.3); White Blood Count 5.8 T/CUMM (4-12)
[2017-06-25] MEDS: INSULIN REGULAR 100 UNIT/ML SUBCUT SCH ×3 (13:46→21:03)
[2017-06-25] MEDS: DICLOFENAC 1% GEL 100 GM TUBE TOP SCH ×4 (13:51→21:01)
[2017-06-25] MEDS ORDERED: diphenhydrAMINE CAP 25 MG CAPSULE PO PRN (14:18)
[2017-06-25] MEDS ORDERED: ZALEPLON 5 MG CAPSULE PO PRN (14:18)
[2017-06-25] MEDS ORDERED: guaiFENesin/DM ER 600-30 MG TABLET PO PRN (14:18)
[2017-06-25] MEDS: ENOXAPARIN 40 MG/0.4 ML SYRINGE SUBCUT SCH (15:29)
[2017-06-25] MEDS: ATORVASTATIN 80 MG TABLET PO SCH (21:01)
[2017-06-25] MEDS: FAMOTIDINE 20 MG TABLET PO SCH (21:03)
[2017-06-25] MEDS: AMITRIPTYLINE 25 MG TABLET PO SCH (21:03)
[2017-06-26 06:19] LABS: Calcium 7.6 MG/DL (8.5-10.1); Magnesium 3.1 MG/DL (1.8-2.4); Osmolality,Calculated 293.3 MOS/KG (273-304); Potassium 4.3 MMOL/L (3.5-5.1)
[2017-06-26] MEDS ORDERED: ETOMIDATE 20 MG/10 ML VIAL IV ONE (11:32)
[2017-06-26] MEDS ORDERED: LIDOCAINE 2% 5 ML VIAL ONE (11:32)
[2017-06-26] MEDS: FUROSEMIDE 40 MG/4 ML VIAL IV SCH ×2 (15:11→16:14)
[2017-06-26] MEDS: CARVEDILOL 6.25 MG TABLET PO SCH ×2 (15:12→21:20)
[2017-06-26] MEDS: ISOSORBIDE DINITRATE 20 MG TABLET PO SCH ×3 (15:12→21:20)
[2017-06-26] MEDS: DOCUSATE SODIUM 100 MG CAPSULE PO SCH ×2 (15:12→21:20)
[2017-06-26] MEDS: CALCIUM (CARBONATE) 600 MG TABLET PO SCH ×2 (15:13→21:20)
[2017-06-26] MEDS: glipiZIDE 5 MG TABLET PO SCH (15:13)
[2017-06-26] MEDS: CLOPIDOGREL 75 MG TABLET PO SCH (15:13)
[2017-06-26] MEDS: ASPIRIN EC 81 MG TABLET PO SCH (15:14)
[2017-06-26] MEDS: hydrALAZINE 25 MG TABLET PO SCH ×2 (15:14→21:20)
[2017-06-26] MEDS: INSULIN REGULAR 100 UNIT/ML SUBCUT SCH ×3 (15:14→21:20)
[2017-06-26] MEDS: ENOXAPARIN 40 MG/0.4 ML SYRINGE SUBCUT SCH (15:16)
[2017-06-26] MEDS: DICLOFENAC 1% GEL 100 GM TUBE TOP SCH ×3 (16:09→21:20)
[2017-06-26] MEDS: PANTOPRAZOLE 40 MG TABLET PO SCH (16:09)
[2017-06-26] MEDS: AMITRIPTYLINE 25 MG TABLET PO SCH (21:20)
[2017-06-26] MEDS: ATORVASTATIN 80 MG TABLET PO SCH (21:20)
[2017-06-26] MEDS: FAMOTIDINE 20 MG TABLET PO SCH (21:20)
[2017-06-27 05:05] LABS: Calcium 7.4 MG/DL (8.5-10.1); Magnesium 2.8 MG/DL (1.8-2.4); Osmolality,Calculated 290.4 MOS/KG (273-304); Potassium 4.3 MMOL/L (3.5-5.1)
[2017-06-27] MEDS ORDERED: FUROSEMIDE 80 MG TABLET PO SCH (09:00)
[2017-06-27] MEDS: ISOSORBIDE DINITRATE 20 MG TABLET PO SCH (09:35)
[2017-06-27] MEDS: ASPIRIN EC 81 MG TABLET PO SCH (09:36)
[2017-06-27] MEDS: CARVEDILOL 6.25 MG TABLET PO SCH (09:36)
[2017-06-27] MEDS: DOCUSATE SODIUM 100 MG CAPSULE PO SCH (09:36)
[2017-06-27] MEDS: INSULIN REGULAR 100 UNIT/ML SUBCUT SCH ×2 (09:36→13:58)
[2017-06-27] MEDS: CALCIUM (CARBONATE) 600 MG TABLET PO SCH (09:36)
[2017-06-27] MEDS: PANTOPRAZOLE 40 MG TABLET PO SCH (09:36)
[2017-06-27] MEDS: glipiZIDE 5 MG TABLET PO SCH (09:36)
[2017-06-27] MEDS: hydrALAZINE 25 MG TABLET PO SCH (09:36)
[2017-06-27] MEDS: CLOPIDOGREL 75 MG TABLET PO SCH (09:36)
[2017-06-27] MEDS: DICLOFENAC 1% GEL 100 GM TUBE TOP SCH ×2 (09:49→13:59)
[2017-06-27] MEDS: FUROSEMIDE 40 MG/4 ML VIAL IV SCH (11:01)
[2017-06-27 12:13] VITALS: BP 108/48
[2017-06-27] MEDS: ENOXAPARIN 40 MG/0.4 ML SYRINGE SUBCUT SCH (13:59)
== END 2017-06-27 14:50 | disposition home or self-care (01) | DRG 391 ==
LOC: EDBD → EDUNIT# → N.ED 17:06 → N.EDINP 17:38 → N.TELEN 19:10
PROVIDERS: ADMIT Internal Medicine Cardiovascular Disease; ATTEND Internal Medicine Cardiovascular Disease

== ENCOUNTER 2017-10-01 01:02 | Inpatient (IN) ==
[2017-10-01] MEDS ORDERED: ASPIRIN CHEW 81 MG TABLET PO STA (02:14)
[2017-10-01] MEDS ORDERED: FUROSEMIDE 40 MG/4 ML VIAL IV STA (02:14)
[2017-10-01] MEDS ORDERED: FUROSEMIDE 100 MG/10 ML VIAL ONE (02:24)
[2017-10-01] MEDS ORDERED: ASPIRIN 325 MG TABLET ONE (02:24)
[2017-10-01 02:47] LABS: Basophils # 0.1 10*3/uL (0.0-0.2); Basophils % 1.3 % (0.0-0.8); Eosinophils % 0.6 % (0.00-10.9); Hematocrit 33.8 VOL% (35.7-47.0); Immature Granulocytes % 0.6 %; Immature Granulocytes Absolute 0.03 #; Lymphocytes # 1.3 10*3/uL (1.4-4.0); Lymphocytes % 24.6 % (21.3-54.2); Mean Corpuscular HGB Conc 32.5 GM/DL (32-36); Mean Corpuscular Hemoglobin 31 PG (27-34); Mean Corpuscular Volume 94.4 FL (87-102); Mean Platelet Volume 10.6 FL (9.6-12.0); Monocytes # 0.8 10*3/uL (0.11-0.8); Monocytes % 14.8 % (1.7-12.7); Neutrophils # 3.1 10*3/uL (1.4-7.4); Neutrophils % 58.1 % (38.7-73.9); Platelet Count 157 T/CUMM (130-400); Red Blood Count 3.58 MC/CUMM (3.8-5.5); Red Cell Distribution Width 15.8 % (9.3-17.3); White Blood Count 5.3 T/CUMM (4-12)
[2017-10-01 02:56] LABS: Albumin 3.1 G/DL (3.4-5.0); Bilirubin,Total 0.7 MG/DL (0.2-1.0); Calcium 8.2 MG/DL (8.5-10.1); Osmolality,Calculated 290.5 MOS/KG (273-304); Potassium 4.4 MMOL/L (3.5-5.1); Total Protein 6.6 G/DL (6.4-8.3); Troponin I Only 0.134 NG/ML (0.00-0.045)
[2017-10-01] MEDS ORDERED: ONDANSETRON 4 MG/2 ML VIAL IV PRN (04:31)
[2017-10-01] MEDS ORDERED: DEXTROSE 50% 25 GM/50 ML VIAL IV PRN (04:31)
[2017-10-01] MEDS ORDERED: MORPHINE 2 MG/1 ML SYRINGE IV PRN (04:31)
[2017-10-01] MEDS ORDERED: GLUCAGON 1 MG VIAL IM PRN (04:31)
[2017-10-01] MEDS: INSULIN LISPRO 100 UNIT/ML SUBCUT SCH ×4 (08:08→21:43)
[2017-10-01] MEDS ORDERED: PANTOPRAZOLE 40 MG TABLET PO ONE (09:10)
[2017-10-01] MEDS: PANTOPRAZOLE 40 MG TABLET PO SCH (09:11)
[2017-10-01] MEDS ORDERED: INSULIN LISPRO 100 UNIT/ML ONE (12:13)
[2017-10-01] MEDS: FUROSEMIDE 40 MG/4 ML VIAL IV SCH ×2 (15:58→16:59)
[2017-10-01] MEDS: CARVEDILOL 6.25 MG TABLET PO SCH (16:59)
[2017-10-01] MEDS: ALBUTEROL/IPRATROPIUM 3 ML NEB RESP TX PRN (17:45)
[2017-10-01] MEDS: ISOSORBIDE DINITRATE 20 MG TABLET PO SCH (21:44)
[2017-10-01] MEDS: hydrALAZINE 25 MG TABLET PO SCH (21:44)
[2017-10-01] MEDS: AMITRIPTYLINE 25 MG TABLET PO SCH (21:44)
[2017-10-01] MEDS: ACETAMINOPHEN 325 MG TABLET PO PRN (21:47)
[2017-10-01] MEDS: diphenhydrAMINE CAP 25 MG CAPSULE PO PRN (23:59)
[2017-10-02 04:42] LABS: White Blood Count 5.2 T/CUMM (4-12)
[2017-10-02 04:43] LABS: Basophils # 0.1 10*3/uL (0.0-0.2); Eosinophils # 0.5 10*3/uL (0.0-0.87); Eosinophils % 8.8 % (0.00-10.9); Hematocrit 29.4 VOL% (35.7-47.0); Hemoglobin 9.5 GM/DL (12.0-16.0); Immature Granulocytes % 0.4 %; Immature Granulocytes Absolute 0.02 #; Lymphocytes # 0.9 10*3/uL (1.4-4.0); Lymphocytes % 16.7 % (21.3-54.2); Mean Corpuscular HGB Conc 32.3 GM/DL (32-36); Mean Corpuscular Hemoglobin 30 PG (27-34); Mean Corpuscular Volume 94.2 FL (87-102); Mean Platelet Volume 10.4 FL (9.6-12.0); Monocytes # 0.5 10*3/uL (0.11-0.8); Monocytes % 9.4 % (1.7-12.7); Neutrophils # 3.3 10*3/uL (1.4-7.4); Neutrophils % 63.7 % (38.7-73.9); Platelet Count 142 T/CUMM (130-400); Red Blood Count 3.12 MC/CUMM (3.8-5.5); Red Cell Distribution Width 15.3 % (9.3-17.3)
[2017-10-02 05:25] LABS: Albumin 2.6 G/DL (3.4-5.0); Bilirubin,Total 0.9 MG/DL (0.2-1.0); Calcium 7.8 MG/DL (8.5-10.1); Osmolality,Calculated 290.4 MOS/KG (273-304); Potassium 3.5 MMOL/L (3.5-5.1); Total Protein 5.6 G/DL (6.4-8.3)
[2017-10-02] MEDS: ALBUTEROL/IPRATROPIUM 3 ML NEB RESP TX PRN ×4 (07:20→23:39)
[2017-10-02] MEDS: INSULIN LISPRO 100 UNIT/ML SUBCUT SCH ×4 (08:23→21:19)
[2017-10-02] MEDS: ISOSORBIDE DINITRATE 20 MG TABLET PO SCH ×3 (08:52→21:20)
[2017-10-02] MEDS: PANTOPRAZOLE 40 MG TABLET PO SCH (08:52)
[2017-10-02] MEDS: FUROSEMIDE 40 MG/4 ML VIAL IV SCH ×2 (08:52→16:17)
[2017-10-02] MEDS: ASPIRIN EC 81 MG TABLET PO SCH (08:52)
[2017-10-02] MEDS: CARVEDILOL 6.25 MG TABLET PO SCH ×2 (08:52→17:00)
[2017-10-02] MEDS: hydrALAZINE 25 MG TABLET PO SCH ×2 (08:52→21:20)
[2017-10-02] MEDS: PROBENECID PO SCH (21:20)
[2017-10-02] MEDS: AMITRIPTYLINE 25 MG TABLET PO SCH (21:20)
[2017-10-02] MEDS: diphenhydrAMINE CAP 25 MG CAPSULE PO PRN (21:20)
[2017-10-02] MEDS: COLCHICINE PO SCH (21:20)
[2017-10-03] MEDS: LEVOTHYROXINE 75 MCG TABLET PO SCH (05:41)
[2017-10-03] MEDS: ASPIRIN EC 81 MG TABLET PO SCH (09:18)
[2017-10-03] MEDS: CARVEDILOL 6.25 MG TABLET PO SCH ×2 (09:18→16:56)
[2017-10-03] MEDS: ISOSORBIDE DINITRATE 20 MG TABLET PO SCH ×3 (09:18→21:48)
[2017-10-03] MEDS: ERGOCALCIFEROL 50,000 UNIT CAPSULE PO SCH (09:18)
[2017-10-03] MEDS: FUROSEMIDE 40 MG/4 ML VIAL IV SCH ×2 (09:18→15:06)
[2017-10-03] MEDS: PANTOPRAZOLE 40 MG TABLET PO SCH (09:18)
[2017-10-03] MEDS: hydrALAZINE 25 MG TABLET PO SCH ×2 (09:18→21:48)
[2017-10-03] MEDS: PROBENECID PO SCH (09:19)
[2017-10-03] MEDS: COLCHICINE PO SCH (09:19)
[2017-10-03] MEDS: INSULIN LISPRO 100 UNIT/ML SUBCUT SCH ×4 (10:00→21:48)
[2017-10-03] MEDS: ACETAMINOPHEN 325 MG TABLET PO PRN (17:08)
[2017-10-03] MEDS: AMITRIPTYLINE 25 MG TABLET PO SCH (21:48)
[2017-10-04] MEDS: LEVOTHYROXINE 75 MCG TABLET PO SCH (06:02)
[2017-10-04] MEDS: hydrALAZINE 25 MG TABLET PO SCH ×2 (08:55→21:12)
[2017-10-04] MEDS: PANTOPRAZOLE 40 MG TABLET PO SCH (08:55)
[2017-10-04] MEDS: ASPIRIN EC 81 MG TABLET PO SCH (08:55)
[2017-10-04] MEDS: CARVEDILOL 6.25 MG TABLET PO SCH ×2 (08:55→16:15)
[2017-10-04] MEDS: INSULIN LISPRO 100 UNIT/ML SUBCUT SCH ×5 (08:55→20:49)
[2017-10-04] MEDS: FUROSEMIDE 40 MG/4 ML VIAL IV SCH (08:55)
[2017-10-04] MEDS: ISOSORBIDE DINITRATE 20 MG TABLET PO SCH ×3 (08:55→21:11)
[2017-10-04] MEDS: PROBENECID PO SCH (09:15)
[2017-10-04] MEDS: COLCHICINE PO SCH (09:15)
[2017-10-04 10:12] LABS: Basophils % 0.2 % (0.0-0.8); Eosinophils # 0.4 10*3/uL (0.0-0.87); Eosinophils % 8.7 % (0.00-10.9); Hematocrit 32.3 VOL% (35.7-47.0); Hemoglobin 10.7 GM/DL (12.0-16.0); Immature Granulocytes % 0.4 %; Immature Granulocytes Absolute 0.02 #; Lymphocytes # 1.2 10*3/uL (1.4-4.0); Lymphocytes % 25.3 % (21.3-54.2); Mean Corpuscular HGB Conc 33.1 GM/DL (32-36); Mean Corpuscular Hemoglobin 31 PG (27-34); Mean Corpuscular Volume 93.1 FL (87-102); Mean Platelet Volume 10.6 FL (9.6-12.0); Monocytes # 0.5 10*3/uL (0.11-0.8); Monocytes % 11.2 % (1.7-12.7); Neutrophils # 2.6 10*3/uL (1.4-7.4); Neutrophils % 54.2 % (38.7-73.9); Platelet Count 160 T/CUMM (130-400); Red Blood Count 3.47 MC/CUMM (3.8-5.5); Red Cell Distribution Width 15.8 % (9.3-17.3); White Blood Count 4.8 T/CUMM (4-12)
[2017-10-04 10:32] LABS: Eosinophils 2 % (0-10); Hypochromasia 1+; Lymphocytes 25 % (20-55); Ovalocytes Slight; Platelet Estimate Normal; Segmented Neutrophils 55 % (50-85); Total Cells Counted 100
[2017-10-04 10:46] LABS: Calcium 7.4 MG/DL (8.5-10.1); Osmolality,Calculated 290.7 MOS/KG (273-304); Potassium 4.2 MMOL/L (3.5-5.1)
[2017-10-04] MEDS: FUROSEMIDE 40 MG TABLET PO SCH (16:15)
[2017-10-04] MEDS: AMITRIPTYLINE 25 MG TABLET PO SCH (21:11)
[2017-10-05 05:49] LABS: Calcium 7.2 MG/DL (8.5-10.1); Osmolality,Calculated 292.7 MOS/KG (273-304); Potassium 3.5 MMOL/L (3.5-5.1)
[2017-10-05] MEDS: LEVOTHYROXINE 75 MCG TABLET PO SCH (08:10)
[2017-10-05] MEDS: INSULIN LISPRO 100 UNIT/ML SUBCUT SCH (08:10)
[2017-10-05] MEDS: FUROSEMIDE 40 MG TABLET PO SCH (08:11)
[2017-10-05] MEDS: CARVEDILOL 6.25 MG TABLET PO SCH (08:11)
[2017-10-05] MEDS: ERGOCALCIFEROL 50,000 UNIT CAPSULE PO SCH (08:11)
[2017-10-05] MEDS: ASPIRIN EC 81 MG TABLET PO SCH (08:11)
[2017-10-05] MEDS: PANTOPRAZOLE 40 MG TABLET PO SCH (08:11)
[2017-10-05] MEDS: hydrALAZINE 25 MG TABLET PO SCH (08:11)
[2017-10-05] MEDS: ISOSORBIDE DINITRATE 20 MG TABLET PO SCH (08:11)
[2017-10-05] MEDS: COLCHICINE PO SCH (08:30)
[2017-10-05] MEDS: PROBENECID PO SCH (08:30)
[2017-10-05] MEDS ORDERED: MORPHINE 4 MG/1 ML VIAL IV PRN (11:34)
[2017-10-05 13:44] VITALS: BP 120/42
== END 2017-10-05 12:00 | disposition home health service (06) | DRG 291 ==
LOC: EDBD → EDUNIT# → N.ED 01:02 → N.EDINP 04:27 → SUATTDRO 04:27 → N.EDINP 06:09 → N.TELES 13:52
PROVIDERS: ADMIT Internal Medicine

== ENCOUNTER 2017-10-08 02:44 | Inpatient (IN) ==
[2017-10-08 04:42] LABS: Basophils % 0.1 % (0.0-0.8); Hematocrit 32.3 VOL% (35.7-47.0); Hemoglobin 10.8 GM/DL (12.0-16.0); Immature Granulocytes % 0.7 %; Immature Granulocytes Absolute 0.08 #; Lymphocytes # 0.8 10*3/uL (1.4-4.0); Lymphocytes % 6.9 % (21.3-54.2); Mean Corpuscular HGB Conc 33.4 GM/DL (32-36); Mean Corpuscular Hemoglobin 31 PG (27-34); Mean Corpuscular Volume 91.8 FL (87-102); Mean Platelet Volume 10.1 FL (9.6-12.0); Monocytes # 0.7 10*3/uL (0.11-0.8); Monocytes % 6.5 % (1.7-12.7); Neutrophils # 9.8 10*3/uL (1.4-7.4); Neutrophils % 85.8 % (38.7-73.9); Platelet Count 202 T/CUMM (130-400); Red Blood Count 3.52 MC/CUMM (3.8-5.5); Red Cell Distribution Width 15.1 % (9.3-17.3); White Blood Count 11.4 T/CUMM (4-12)
[2017-10-08 05:02] LABS: Lactic Acid 1.3 MMOL/L (0.4-2.0)
[2017-10-08 05:05] LABS: Alanine Aminotransferase 28 U/L (13-56); Albumin 2.4 G/DL (3.4-5.0); Alkaline Phosphatase 102 U/L (45-117); Aspartate Amino Transferase 15 U/L (0-37); Blood Urea Nitrogen 69 MG/DL (7-18); Calcium 7.8 MG/DL (8.5-10.1); Glucose 100 MG/DL (74-106); Osmolality,Calculated 287.2 MOS/KG (273-304); Potassium 3.8 MMOL/L (3.5-5.1); Sodium 134 MMOL/L (136-145); Total Protein 6.2 G/DL (6.4-8.3); Troponin I Only 0.147 NG/ML (0.00-0.045)
[2017-10-08] MEDS ORDERED: GLUCAGON 1 MG VIAL IM PRN (05:25)
[2017-10-08] MEDS ORDERED: ALBUTEROL/IPRATROPIUM 3 ML NEB RESP TX PRN (05:25)
[2017-10-08] MEDS ORDERED: ONDANSETRON 4 MG/2 ML VIAL IV PRN (05:25)
[2017-10-08] MEDS ORDERED: DEXTROSE 50% 25 GM/50 ML VIAL IV PRN (05:25)
[2017-10-08] MEDS ORDERED: ACETAMINOPHEN 325 MG TABLET PO PRN (05:25)
[2017-10-08] MEDS ORDERED: MORPHINE 4 MG/1 ML VIAL IV PRN (05:25)
[2017-10-08] MEDS ORDERED: LEVOFLOXACIN INJ 750 MG in PREMIX 1 EACH IV ONE (06:00)
[2017-10-08] MEDS: ALBUTEROL/IPRATROPIUM 3 ML NEB RESP TX SCH ×3 (07:45→20:00)
[2017-10-08] MEDS ORDERED: FUROSEMIDE 40 MG TABLET PO SCH (08:00)
[2017-10-08] MEDS: INSULIN REGULAR 100 UNIT/ML SUBCUT SCH ×4 (08:41→22:06)
[2017-10-08] MEDS: PANTOPRAZOLE 40 MG TABLET PO SCH (10:25)
[2017-10-08] MEDS: DOCUSATE SODIUM 100 MG CAPSULE PO SCH ×2 (10:25→22:38)
[2017-10-08] MEDS: ASPIRIN EC 81 MG TABLET PO SCH (10:25)
[2017-10-08] MEDS: ENOXAPARIN 30 MG/0.3 ML SYRINGE SUBCUT SCH (10:25)
[2017-10-08] MEDS: hydrALAZINE 25 MG TABLET PO SCH ×3 (10:25→22:38)
[2017-10-08] MEDS: CARVEDILOL 6.25 MG TABLET PO SCH ×2 (10:25→16:58)
[2017-10-08] MEDS: ISOSORBIDE DINITRATE 20 MG TABLET PO SCH ×2 (16:58→22:38)
[2017-10-08] MEDS: FUROSEMIDE 40 MG/4 ML VIAL IV SCH (16:58)
[2017-10-08] MEDS: ATORVASTATIN 40 MG TABLET PO SCH (22:38)
[2017-10-09] MEDS: ALBUTEROL/IPRATROPIUM 3 ML NEB RESP TX SCH ×4 (01:24→19:29)
[2017-10-09 06:06] LABS: Basophils % 0.3 % (0.0-0.8); Eosinophils # 0.2 10*3/uL (0.0-0.87); Eosinophils % 2.8 % (0.00-10.9); Hematocrit 27.9 VOL% (35.7-47.0); Hemoglobin 9.3 GM/DL (12.0-16.0); Immature Granulocytes % 0.7 %; Immature Granulocytes Absolute 0.05 #; Lymphocytes # 1.3 10*3/uL (1.4-4.0); Lymphocytes % 16.8 % (21.3-54.2); Mean Corpuscular HGB Conc 33.3 GM/DL (32-36); Mean Corpuscular Hemoglobin 31 PG (27-34); Mean Corpuscular Volume 91.5 FL (87-102); Mean Platelet Volume 10.4 FL (9.6-12.0); Monocytes # 0.6 10*3/uL (0.11-0.8); Neutrophils # 5.5 10*3/uL (1.4-7.4); Neutrophils % 71.4 % (38.7-73.9); Platelet Count 214 T/CUMM (130-400); Red Blood Count 3.05 MC/CUMM (3.8-5.5); Red Cell Distribution Width 15.1 % (9.3-17.3); White Blood Count 7.6 T/CUMM (4-12)
[2017-10-09 06:31] LABS: Albumin 2.1 G/DL (3.4-5.0); Bilirubin,Total 0.6 MG/DL (0.2-1.0); Calcium 7.7 MG/DL (8.5-10.1); Osmolality,Calculated 284.4 MOS/KG (273-304); Risk Ratio 2.7; Total Protein 5.6 G/DL (6.4-8.3); VLDL CHOLESTEROL 15.6 MG/DL
[2017-10-09] MEDS: ISOSORBIDE DINITRATE 20 MG TABLET PO SCH ×3 (08:57→21:50)
[2017-10-09] MEDS: hydrALAZINE 25 MG TABLET PO SCH ×3 (08:58→21:52)
[2017-10-09] MEDS: PANTOPRAZOLE 40 MG TABLET PO SCH (08:58)
[2017-10-09] MEDS: ASPIRIN EC 81 MG TABLET PO SCH (08:58)
[2017-10-09] MEDS: ENOXAPARIN 30 MG/0.3 ML SYRINGE SUBCUT SCH (08:58)
[2017-10-09] MEDS: DOCUSATE SODIUM 100 MG CAPSULE PO SCH ×2 (08:58→21:50)
[2017-10-09] MEDS: CARVEDILOL 6.25 MG TABLET PO SCH ×2 (08:58→16:15)
[2017-10-09] MEDS: FUROSEMIDE 40 MG/4 ML VIAL IV SCH (08:59)
[2017-10-09] MEDS: INSULIN REGULAR 100 UNIT/ML SUBCUT SCH ×4 (09:03→21:57)
[2017-10-09] MEDS: FUROSEMIDE 100 MG/10 ML VIAL IV SCH (16:15)
[2017-10-09] MEDS: ATORVASTATIN 40 MG TABLET PO SCH (21:50)
[2017-10-10] MEDS: ALBUTEROL/IPRATROPIUM 3 ML NEB RESP TX SCH ×4 (00:34→20:04)
[2017-10-10 05:39] LABS: Basophils % 0.5 % (0.0-0.8); Eosinophils # 0.3 10*3/uL (0.0-0.87); Eosinophils % 4.8 % (0.00-10.9); Hematocrit 29.5 VOL% (35.7-47.0); Immature Granulocytes % 0.3 %; Immature Granulocytes Absolute 0.02 #; Lymphocytes # 1.5 10*3/uL (1.4-4.0); Lymphocytes % 25.7 % (21.3-54.2); Mean Corpuscular HGB Conc 33.9 GM/DL (32-36); Mean Corpuscular Hemoglobin 30 PG (27-34); Mean Corpuscular Volume 89.7 FL (87-102); Mean Platelet Volume 10.2 FL (9.6-12.0); Monocytes # 0.6 10*3/uL (0.11-0.8); Monocytes % 10.4 % (1.7-12.7); Neutrophils # 3.4 10*3/uL (1.4-7.4); Neutrophils % 58.3 % (38.7-73.9); Platelet Count 285 T/CUMM (130-400); Red Blood Count 3.29 MC/CUMM (3.8-5.5); Red Cell Distribution Width 14.9 % (9.3-17.3); White Blood Count 5.8 T/CUMM (4-12)
[2017-10-10 06:20] LABS: Albumin 2.4 G/DL (3.4-5.0); Bilirubin,Total 0.9 MG/DL (0.2-1.0); Calcium 7.8 MG/DL (8.5-10.1); Osmolality,Calculated 287.1 MOS/KG (273-304); Potassium 4.4 MMOL/L (3.5-5.1); Total Protein 6.3 G/DL (6.4-8.3)
[2017-10-10] MEDS: LEVOTHYROXINE 75 MCG TABLET PO SCH (06:35)
[2017-10-10 06:48] LABS: Calcium 7.9 MG/DL (8.5-10.1); Osmolality,Calculated 288.1 MOS/KG (273-304); Potassium 4.4 MMOL/L (3.5-5.1)
[2017-10-10] MEDS: INSULIN REGULAR 100 UNIT/ML SUBCUT SCH ×4 (07:40→21:21)
[2017-10-10] MEDS: LEVOFLOXACIN INJ 500 MG in PREMIX 1 EACH IV SCH (10:09)
[2017-10-10] MEDS: FUROSEMIDE 100 MG/10 ML VIAL IV SCH ×2 (10:09→16:14)
[2017-10-10] MEDS: CARVEDILOL 6.25 MG TABLET PO SCH ×2 (10:10→16:14)
[2017-10-10] MEDS: ASPIRIN EC 81 MG TABLET PO SCH (10:10)
[2017-10-10] MEDS: ERGOCALCIFEROL 50,000 UNIT CAPSULE PO SCH (10:10)
[2017-10-10] MEDS: ISOSORBIDE DINITRATE 20 MG TABLET PO SCH ×3 (10:10→20:32)
[2017-10-10] MEDS: ENOXAPARIN 30 MG/0.3 ML SYRINGE SUBCUT SCH (10:10)
[2017-10-10] MEDS: DOCUSATE SODIUM 100 MG CAPSULE PO SCH ×2 (10:11→20:32)
[2017-10-10] MEDS: hydrALAZINE 25 MG TABLET PO SCH ×3 (10:11→20:32)
[2017-10-10] MEDS: PANTOPRAZOLE 40 MG TABLET PO SCH (10:11)
[2017-10-10] MEDS: ATORVASTATIN 40 MG TABLET PO SCH (20:32)
[2017-10-11] MEDS: ALBUTEROL/IPRATROPIUM 3 ML NEB RESP TX SCH ×4 (00:21→18:58)
[2017-10-11] MEDS: LEVOTHYROXINE 75 MCG TABLET PO SCH (06:27)
[2017-10-11 07:02] LABS: Basophils # 0.1 10*3/uL (0.0-0.2); Basophils % 0.9 % (0.0-0.8); Eosinophils # 0.3 10*3/uL (0.0-0.87); Eosinophils % 6.4 % (0.00-10.9); Hematocrit 30.3 VOL% (35.7-47.0); Immature Granulocytes % 0.4 %; Immature Granulocytes Absolute 0.02 #; Lymphocytes # 1.7 10*3/uL (1.4-4.0); Lymphocytes % 30.8 % (21.3-54.2); Mean Corpuscular Hemoglobin 30 PG (27-34); Mean Corpuscular Volume 91.3 FL (87-102); Monocytes # 0.8 10*3/uL (0.11-0.8); Neutrophils # 2.5 10*3/uL (1.4-7.4); Neutrophils % 47.5 % (38.7-73.9); Platelet Count 318 T/CUMM (130-400); Red Blood Count 3.32 MC/CUMM (3.8-5.5); White Blood Count 5.4 T/CUMM (4-12)
[2017-10-11 07:18] LABS: Potassium 4.3 MMOL/L (3.5-5.1)
[2017-10-11] MEDS: INSULIN REGULAR 100 UNIT/ML SUBCUT SCH ×4 (07:29→21:22)
[2017-10-11] MEDS: FUROSEMIDE 100 MG/10 ML VIAL IV SCH (08:19)
[2017-10-11] MEDS: ENOXAPARIN 30 MG/0.3 ML SYRINGE SUBCUT SCH (09:07)
[2017-10-11] MEDS: PANTOPRAZOLE 40 MG TABLET PO SCH (09:08)
[2017-10-11] MEDS: DOCUSATE SODIUM 100 MG CAPSULE PO SCH ×2 (09:08→21:22)
[2017-10-11] MEDS: ASPIRIN EC 81 MG TABLET PO SCH (09:08)
[2017-10-11] MEDS: hydrALAZINE 25 MG TABLET PO SCH ×3 (09:08→21:21)
[2017-10-11] MEDS: CARVEDILOL 6.25 MG TABLET PO SCH ×2 (09:08→16:13)
[2017-10-11] MEDS: ISOSORBIDE DINITRATE 20 MG TABLET PO SCH ×3 (09:08→21:21)
[2017-10-11] MEDS: FUROSEMIDE 40 MG TABLET PO SCH (10:33)
[2017-10-11] MEDS: ATORVASTATIN 40 MG TABLET PO SCH (21:22)
[2017-10-12] MEDS: ALBUTEROL/IPRATROPIUM 3 ML NEB RESP TX SCH ×4 (00:06→19:13)
[2017-10-12] MEDS: LEVOTHYROXINE 75 MCG TABLET PO SCH (05:48)
[2017-10-12 06:29] LABS: Basophils # 0.1 10*3/uL (0.0-0.2); Basophils % 0.9 % (0.0-0.8); Eosinophils # 0.4 10*3/uL (0.0-0.87); Eosinophils % 7.7 % (0.00-10.9); Hematocrit 29.5 VOL% (35.7-47.0); Hemoglobin 9.7 GM/DL (12.0-16.0); Immature Granulocytes % 0.5 %; Immature Granulocytes Absolute 0.03 #; Lymphocytes # 1.8 10*3/uL (1.4-4.0); Lymphocytes % 30.8 % (21.3-54.2); Mean Corpuscular HGB Conc 32.9 GM/DL (32-36); Mean Corpuscular Hemoglobin 30 PG (27-34); Mean Corpuscular Volume 92.2 FL (87-102); Monocytes # 0.8 10*3/uL (0.11-0.8); Monocytes % 13.6 % (1.7-12.7); Neutrophils # 2.7 10*3/uL (1.4-7.4); Neutrophils % 46.5 % (38.7-73.9); Platelet Count 315 T/CUMM (130-400); Red Cell Distribution Width 14.7 % (9.3-17.3); White Blood Count 5.7 T/CUMM (4-12)
[2017-10-12 06:52] LABS: Calcium 7.8 MG/DL (8.5-10.1)
[2017-10-12 06:53] LABS: Osmolality,Calculated 289.2 MOS/KG (273-304); Potassium 4.5 MMOL/L (3.5-5.1)
[2017-10-12] MEDS: INSULIN REGULAR 100 UNIT/ML SUBCUT SCH ×4 (07:45→20:49)
[2017-10-12] MEDS: DOCUSATE SODIUM 100 MG CAPSULE PO SCH ×2 (08:56→20:34)
[2017-10-12] MEDS: PANTOPRAZOLE 40 MG TABLET PO SCH (08:56)
[2017-10-12] MEDS: hydrALAZINE 25 MG TABLET PO SCH ×3 (08:56→20:34)
[2017-10-12] MEDS: CARVEDILOL 6.25 MG TABLET PO SCH ×2 (08:56→16:22)
[2017-10-12] MEDS: ERGOCALCIFEROL 50,000 UNIT CAPSULE PO SCH (08:56)
[2017-10-12] MEDS: ISOSORBIDE DINITRATE 20 MG TABLET PO SCH ×3 (08:56→20:34)
[2017-10-12] MEDS: FUROSEMIDE 40 MG TABLET PO SCH (08:56)
[2017-10-12] MEDS: ASPIRIN EC 81 MG TABLET PO SCH (08:56)
[2017-10-12] MEDS: ENOXAPARIN 30 MG/0.3 ML SYRINGE SUBCUT SCH (09:00)
[2017-10-12] MEDS: LEVOFLOXACIN INJ 500 MG in PREMIX 1 EACH IV SCH (09:00)
[2017-10-12] MEDS: ATORVASTATIN 40 MG TABLET PO SCH (20:34)
[2017-10-13] MEDS: ALBUTEROL/IPRATROPIUM 3 ML NEB RESP TX SCH ×4 (00:34→18:40)
[2017-10-13] MEDS: LEVOTHYROXINE 75 MCG TABLET PO SCH (05:42)
[2017-10-13] MEDS: INSULIN REGULAR 100 UNIT/ML SUBCUT SCH ×4 (09:05→21:42)
[2017-10-13] MEDS: DOCUSATE SODIUM 100 MG CAPSULE PO SCH ×2 (09:08→21:41)
[2017-10-13] MEDS: ASPIRIN EC 81 MG TABLET PO SCH (09:09)
[2017-10-13] MEDS: ISOSORBIDE DINITRATE 20 MG TABLET PO SCH ×3 (09:09→21:41)
[2017-10-13] MEDS: CARVEDILOL 6.25 MG TABLET PO SCH ×2 (09:09→17:18)
[2017-10-13] MEDS: PANTOPRAZOLE 40 MG TABLET PO SCH (09:09)
[2017-10-13] MEDS: FUROSEMIDE 40 MG TABLET PO SCH (09:09)
[2017-10-13] MEDS: ENOXAPARIN 30 MG/0.3 ML SYRINGE SUBCUT SCH (09:10)
[2017-10-13] MEDS: hydrALAZINE 25 MG TABLET PO SCH ×3 (09:10→21:42)
[2017-10-13] MEDS: ATORVASTATIN 40 MG TABLET PO SCH (21:41)
[2017-10-14] MEDS: ALBUTEROL/IPRATROPIUM 3 ML NEB RESP TX SCH ×4 (00:58→19:22)
[2017-10-14 05:27] LABS: Basophils # 0.1 10*3/uL (0.0-0.2); Basophils % 0.8 % (0.0-0.8); Eosinophils # 0.6 10*3/uL (0.0-0.87); Hematocrit 28.5 VOL% (35.7-47.0); Hemoglobin 9.1 GM/DL (12.0-16.0); Immature Granulocytes % 0.6 %; Immature Granulocytes Absolute 0.04 #; Lymphocytes # 2.2 10*3/uL (1.4-4.0); Lymphocytes % 31.4 % (21.3-54.2); Mean Corpuscular HGB Conc 31.9 GM/DL (32-36); Mean Corpuscular Hemoglobin 30 PG (27-34); Mean Corpuscular Volume 94.7 FL (87-102); Mean Platelet Volume 10.1 FL (9.6-12.0); Monocytes # 0.8 10*3/uL (0.11-0.8); Monocytes % 11.4 % (1.7-12.7); Neutrophils # 3.4 10*3/uL (1.4-7.4); Neutrophils % 47.8 % (38.7-73.9); Platelet Count 316 T/CUMM (130-400); Red Blood Count 3.01 MC/CUMM (3.8-5.5); White Blood Count 7.1 T/CUMM (4-12)
[2017-10-14] MEDS: LEVOTHYROXINE 75 MCG TABLET PO SCH (06:11)
[2017-10-14 06:24] LABS: Alanine Aminotransferase 32 U/L (13-56); Albumin 2.5 G/DL (3.4-5.0); Alkaline Phosphatase 118 U/L (45-117); Aspartate Amino Transferase 49 U/L (0-37); Bilirubin,Total < 0.39 MG/DL (0.2-1.0); Blood Urea Nitrogen 74 MG/DL (7-18); Calcium 8.1 MG/DL (8.5-10.1); Glucose 110 MG/DL (74-106); Osmolality,Calculated 299.5 MOS/KG (273-304); Potassium 4.2 MMOL/L (3.5-5.1); Sodium 139 MMOL/L (136-145); Total Protein 6.4 G/DL (6.4-8.3)
[2017-10-14] MEDS: INSULIN REGULAR 100 UNIT/ML SUBCUT SCH ×4 (08:34→20:44)
[2017-10-14] MEDS: LEVOFLOXACIN INJ 500 MG in PREMIX 1 EACH IV SCH (08:55)
[2017-10-14] MEDS: ASPIRIN EC 81 MG TABLET PO SCH (08:56)
[2017-10-14] MEDS: FUROSEMIDE 40 MG TABLET PO SCH (08:56)
[2017-10-14] MEDS: ISOSORBIDE DINITRATE 20 MG TABLET PO SCH ×3 (08:56→20:40)
[2017-10-14] MEDS: ENOXAPARIN 30 MG/0.3 ML SYRINGE SUBCUT SCH (08:56)
[2017-10-14] MEDS: CARVEDILOL 6.25 MG TABLET PO SCH ×2 (08:56→16:34)
[2017-10-14] MEDS: PANTOPRAZOLE 40 MG TABLET PO SCH (08:57)
[2017-10-14] MEDS: hydrALAZINE 25 MG TABLET PO SCH ×3 (08:57→20:40)
[2017-10-14] MEDS: DOCUSATE SODIUM 100 MG CAPSULE PO SCH ×2 (08:57→20:40)
[2017-10-14] MEDS: ATORVASTATIN 40 MG TABLET PO SCH (20:40)
[2017-10-15] MEDS: ALBUTEROL/IPRATROPIUM 3 ML NEB RESP TX SCH ×3 (00:13→13:11)
[2017-10-15 04:59] LABS: Basophils % 0.3 % (0.0-0.8); Eosinophils # 0.6 10*3/uL (0.0-0.87); Eosinophils % 8.4 % (0.00-10.9); Hematocrit 25.8 VOL% (35.7-47.0); Hemoglobin 8.7 GM/DL (12.0-16.0); Immature Granulocytes % 0.4 %; Immature Granulocytes Absolute 0.03 #; Lymphocytes # 2.4 10*3/uL (1.4-4.0); Lymphocytes % 35.1 % (21.3-54.2); Mean Corpuscular HGB Conc 33.7 GM/DL (32-36); Mean Corpuscular Hemoglobin 31 PG (27-34); Mean Corpuscular Volume 92.8 FL (87-102); Mean Platelet Volume 9.6 FL (9.6-12.0); Monocytes # 0.7 10*3/uL (0.11-0.8); Monocytes % 10.2 % (1.7-12.7); Neutrophils # 3.1 10*3/uL (1.4-7.4); Neutrophils % 45.6 % (38.7-73.9); Platelet Count 302 T/CUMM (130-400); Red Blood Count 2.78 MC/CUMM (3.8-5.5); White Blood Count 6.8 T/CUMM (4-12)
[2017-10-15 05:26] LABS: Osmolality,Calculated 300.4 MOS/KG (273-304)
[2017-10-15 05:32] LABS: Albumin 2.5 G/DL (3.4-5.0); Bilirubin,Total 0.5 MG/DL (0.2-1.0); Calcium 7.9 MG/DL (8.5-10.1); Osmolality,Calculated 298.5 MOS/KG (273-304); Total Protein 6.2 G/DL (6.4-8.3)
[2017-10-15] MEDS ORDERED: ceFAZolin 1,000 MG VIAL IRRIG ONE (06:00)
[2017-10-15] MEDS ORDERED: ceFAZolin 1,000 MG in SYRINGE 1 EACH IV ONE (06:00)
[2017-10-15] MEDS ORDERED: GLUCAGON 1 MG VIAL IM PRN (07:48)
[2017-10-15] MEDS ORDERED: DEXTROSE 50% 25 GM/50 ML VIAL IV PRN (07:48)
[2017-10-15 08:28] LABS: % Iron Saturation 38.1 % (18-50)
[2017-10-15] MEDS: FUROSEMIDE 40 MG TABLET PO SCH (09:30)
[2017-10-15] MEDS: ISOSORBIDE DINITRATE 20 MG TABLET PO SCH (09:30)
[2017-10-15] MEDS: ERGOCALCIFEROL 50,000 UNIT CAPSULE PO SCH (09:30)
[2017-10-15] MEDS: ASPIRIN EC 81 MG TABLET PO SCH (09:30)
[2017-10-15] MEDS: LEVOTHYROXINE 75 MCG TABLET PO SCH (09:30)
[2017-10-15] MEDS: PANTOPRAZOLE 40 MG TABLET PO SCH (09:30)
[2017-10-15] MEDS: hydrALAZINE 25 MG TABLET PO SCH (09:30)
[2017-10-15] MEDS: ENOXAPARIN 30 MG/0.3 ML SYRINGE SUBCUT SCH (09:31)
[2017-10-15] MEDS: CARVEDILOL 6.25 MG TABLET PO SCH (09:31)
[2017-10-15] MEDS: DOCUSATE SODIUM 100 MG CAPSULE PO SCH (09:31)
[2017-10-15] MEDS: INSULIN REGULAR 100 UNIT/ML SUBCUT SCH ×2 (09:31→12:50)
[2017-10-15 11:47] VITALS: BP 152/69
== END 2017-10-15 13:38 | disposition home or self-care (01) | DRG 291 ==
LOC: EDBD → EDUNIT# → N.ED 02:44 → N.EDINP 04:02 → SUATTDRO 04:02 → N.2E 05:00
PROVIDERS: ATTEND Internal Medicine Infectious Disease

== ENCOUNTER 2018-06-01 16:53 | Inpatient (IN) ==
[2018-06-01] MEDS ORDERED: CLINDAMYCIN INJ 600 MG in PREMIX 1 EACH IV STA (18:20)
[2018-06-01] MEDS ORDERED: PROMETHAZINE 25 MG/1 ML VIAL IM PRN (21:26)
[2018-06-01] MEDS: ISOSORBIDE DINITRATE 20 MG TABLET PO SCH (22:07)
[2018-06-01] MEDS: CARVEDILOL 6.25 MG TABLET PO SCH (22:07)
[2018-06-01] MEDS: ATORVASTATIN 40 MG TABLET PO SCH (22:07)
[2018-06-01] MEDS: AMITRIPTYLINE 25 MG TABLET PO SCH (22:07)
[2018-06-01] MEDS: hydrALAZINE 25 MG TABLET PO SCH (22:07)
[2018-06-01] MEDS: SODIUM CHLORIDE 0.45% 1,000 ML IV SCH (22:07)
[2018-06-01] MEDS: ENOXAPARIN 30 MG/0.3 ML SYRINGE SUBCUT SCH (22:07)
[2018-06-02] MEDS: CLINDAMYCIN INJ 600 MG in PREMIX 1 EACH IV SCH ×3 (00:49→17:44)
[2018-06-02 04:44] LABS: Basophils % 0.2 % (0.0-0.8); Eosinophils % 0.1 % (0.00-10.9); Hematocrit 28.4 VOL% (35.7-47.0); Hemoglobin 8.6 GM/DL (12.0-16.0); Immature Granulocytes % 0.8 %; Lymphocytes # 0.8 10*3/uL (1.4-4.0); Lymphocytes % 5.9 % (21.3-54.2); Mean Corpuscular HGB Conc 30.3 GM/DL (32-36); Mean Corpuscular Hemoglobin 30 PG (27-34); Mean Corpuscular Volume 97.9 FL (87-102); Mean Platelet Volume 10.2 FL (9.6-12.0); Monocytes # 0.8 10*3/uL (0.11-0.8); Neutrophils # 11.3 10*3/uL (1.4-7.4); Platelet Count 176 T/CUMM (130-400)
[2018-06-02 05:20] LABS: Albumin 2.1 G/DL (3.4-5.0); Bilirubin,Total 0.9 MG/DL (0.2-1.0); Calcium 7.5 MG/DL (8.5-10.1); Osmolality,Calculated 296.1 MOS/KG (273-304); Potassium 4.7 MMOL/L (3.5-5.1); Risk Ratio 2.14; Total Protein 5.9 G/DL (6.4-8.3)
[2018-06-02] MEDS ORDERED: LEVOTHYROXINE 75 MCG TABLET PO SCH (06:00)
[2018-06-02 08:00] LABS: Amorphous Crystals,Urine Occasional /HPF (Few); Apearance,Urine Slightly Hazy (Clear); Bilirubin,Urine Negative (Negative); Blood, Urine Negative (Negative); Glucose,Urine (UA) 50 mg/dL (Negative); Ketones,Urine Negative (Negative); Mucus,Urine Occasional /LPF (Occasional); Nitrite,Urine Negative (Negative); Protein,Urine 100 MG/DL; RBC,Urine 1 /HPF (0-4); Squamous Epithelial Cell,Urine Occasional /HPF (0-10); Urine Color Yellow (Yellow); Urine Specific Gravity 1.013 (1.001-1.035); Urine Urobilinogen < 2.0 EU/DL (0.2-1.0); WBC,Urine 2 /HPF (0-6)
[2018-06-02] MEDS: FUROSEMIDE 40 MG TABLET PO SCH ×2 (08:27→15:51)
[2018-06-02] MEDS: PANTOPRAZOLE 40 MG TABLET PO SCH (08:27)
[2018-06-02] MEDS: CARVEDILOL 6.25 MG TABLET PO SCH ×2 (08:27→17:55)
[2018-06-02] MEDS: ISOSORBIDE DINITRATE 20 MG TABLET PO SCH ×3 (08:27→20:50)
[2018-06-02] MEDS: glipiZIDE 5 MG TABLET PO SCH (08:27)
[2018-06-02] MEDS: ASPIRIN EC 81 MG TABLET PO SCH (08:27)
[2018-06-02] MEDS: hydrALAZINE 25 MG TABLET PO SCH ×2 (08:27→20:50)
[2018-06-02] MEDS ORDERED: PROBENECID/COLCHICINE 500-0.5 MG TABLET PO SCH (09:00)
[2018-06-02] MEDS ORDERED: INFLUENZA VIRUS VACCINE 0.5 ML SYRINGE IM ONE (09:00)
[2018-06-02] MEDS: ENOXAPARIN 30 MG/0.3 ML SYRINGE SUBCUT SCH (20:45)
[2018-06-02] MEDS: AMITRIPTYLINE 25 MG TABLET PO SCH (20:46)
[2018-06-02] MEDS: ATORVASTATIN 40 MG TABLET PO SCH (20:46)
[2018-06-03] MEDS: CLINDAMYCIN INJ 600 MG in PREMIX 1 EACH IV SCH ×3 (01:06→19:27)
[2018-06-03] MEDS: SODIUM CHLORIDE 0.45% 1,000 ML IV SCH ×2 (01:27→07:38)
[2018-06-03] MEDS: LEVOTHYROXINE 88 MCG TABLET PO SCH (07:39)
[2018-06-03] MEDS ORDERED: ERGOCALCIFEROL 50,000 UNIT CAPSULE PO SCH (09:00)
[2018-06-03] MEDS: FUROSEMIDE 40 MG TABLET PO SCH ×2 (09:02→19:25)
[2018-06-03] MEDS: CARVEDILOL 6.25 MG TABLET PO SCH ×2 (09:02→19:21)
[2018-06-03] MEDS: glipiZIDE 5 MG TABLET PO SCH (09:02)
[2018-06-03] MEDS: PANTOPRAZOLE 40 MG TABLET PO SCH (09:03)
[2018-06-03] MEDS: ASPIRIN EC 81 MG TABLET PO SCH (09:03)
[2018-06-03] MEDS: ISOSORBIDE DINITRATE 20 MG TABLET PO SCH ×3 (09:03→20:14)
[2018-06-03] MEDS: hydrALAZINE 25 MG TABLET PO SCH ×2 (09:03→20:13)
[2018-06-03] MEDS ORDERED: FUROSEMIDE 40 MG/4 ML VIAL IV SCH (11:30)
[2018-06-03] MEDS ORDERED: GLUCAGON 1 MG VIAL IM PRN (14:19)
[2018-06-03] MEDS: MORPHINE 4 MG/1 ML VIAL IV PRN (16:32)
[2018-06-03] MEDS ORDERED: NALOXONE 0.4 MG/ML VIAL IV ONE (17:30)
[2018-06-03 17:48] LABS: Basophils % 0.1 % (0.0-0.8); Eosinophils # 0.1 10*3/uL (0.0-0.87); Eosinophils % 0.6 % (0.00-10.9); Hematocrit 32.7 VOL% (35.7-47.0); Hemoglobin 10.4 GM/DL (12.0-16.0); Immature Granulocytes % 0.5 %; Immature Granulocytes Absolute 0.05 #; Lymphocytes # 0.9 10*3/uL (1.4-4.0); Lymphocytes % 8.1 % (21.3-54.2); Mean Corpuscular HGB Conc 31.8 GM/DL (32-36); Mean Corpuscular Hemoglobin 31 PG (27-34); Mean Corpuscular Volume 96.5 FL (87-102); Mean Platelet Volume 10.6 FL (9.6-12.0); Monocytes # 0.8 10*3/uL (0.11-0.8); Monocytes % 7.2 % (1.7-12.7); Neutrophils # 8.8 10*3/uL (1.4-7.4); Neutrophils % 83.5 % (38.7-73.9); Platelet Count 180 T/CUMM (130-400); Red Blood Count 3.39 MC/CUMM (3.8-5.5); Red Cell Distribution Width 15.9 % (9.3-17.3); White Blood Count 10.5 T/CUMM (4-12)
[2018-06-03 18:07] LABS: Ammonia 56 UMOL/L (11-32)
[2018-06-03 18:08] LABS: Alanine Aminotransferase 17 U/L (13-56); Albumin 2.2 G/DL (3.4-5.0); Alkaline Phosphatase 107 U/L (45-117); Aspartate Amino Transferase 27 U/L (0-37); Blood Urea Nitrogen 57 MG/DL (7-18); Calcium 7.4 MG/DL (8.5-10.1); Osmolality,Calculated 285.8 MOS/KG (273-304); Potassium 4.8 MMOL/L (3.5-5.1); Sodium 137 MMOL/L (136-145); Total Protein 6.7 G/DL (6.4-8.3)
[2018-06-03 18:12] LABS: Pt O2 Delivery Device Other
[2018-06-03 18:13] LABS: ABG Base Excess -10.4 MMOL/L (-2.5-2.5); ABG HCO3 16.2 MMOL/L (20-26); ABG PCO2 26.5 MM HG (35-48); ABG PH 7.339 (7.35-7.45)
[2018-06-03 18:16] LABS: Glucose 40 MG/DL (74-106); Troponin I 0.092 NG/ML (0.00-0.045)
[2018-06-03] MEDS: INSULIN LISPRO 100 UNIT/ML SUBCUT SCH ×2 (18:27→20:54)
[2018-06-03] MEDS ORDERED: DEXTROSE 50% 25 GM/50 ML SYRINGE IV ONE (18:50)
[2018-06-03] MEDS: DEXTROSE 50% 25 GM/50 ML VIAL IV PRN ×2 (18:51→22:38)
[2018-06-03] MEDS ORDERED: LACTULOSE 20 GM/30 ML UDCUP PO ONE (18:52)
[2018-06-03] MEDS ORDERED: SODIUM CHLORIDE 0.45% 1,000 ML IV SCH (19:30)
[2018-06-03] MEDS: AMITRIPTYLINE 25 MG TABLET PO SCH (20:12)
[2018-06-03] MEDS: ATORVASTATIN 40 MG TABLET PO SCH (20:13)
[2018-06-03] MEDS: APIXABAN 5 MG TABLET PO SCH (20:13)
[2018-06-04] MEDS: CLINDAMYCIN INJ 600 MG in PREMIX 1 EACH IV SCH ×3 (01:31→17:48)
[2018-06-04] MEDS: DEXTROSE 50% 25 GM/50 ML VIAL IV PRN (04:15)
[2018-06-04] MEDS ORDERED: DEXTROSE 5% NACL 0.45% 1,000 ML IV SCH (04:30)
[2018-06-04 05:00] LABS: Basophils % 0.1 % (0.0-0.8); Eosinophils % 0.3 % (0.00-10.9); Hematocrit 27.4 VOL% (35.7-47.0); Hemoglobin 8.4 GM/DL (12.0-16.0); Immature Granulocytes % 0.4 %; Immature Granulocytes Absolute 0.04 #; Lymphocytes # 0.5 10*3/uL (1.4-4.0); Lymphocytes % 5.4 % (21.3-54.2); Mean Corpuscular HGB Conc 30.7 GM/DL (32-36); Mean Corpuscular Hemoglobin 30 PG (27-34); Mean Corpuscular Volume 96.8 FL (87-102); Mean Platelet Volume 10.6 FL (9.6-12.0); Monocytes # 0.6 10*3/uL (0.11-0.8); Monocytes % 5.9 % (1.7-12.7); Neutrophils # 8.3 10*3/uL (1.4-7.4); Neutrophils % 87.9 % (38.7-73.9); Platelet Count 150 T/CUMM (130-400); Red Blood Count 2.83 MC/CUMM (3.8-5.5); Red Cell Distribution Width 16.1 % (9.3-17.3); White Blood Count 9.4 T/CUMM (4-12)
[2018-06-04] MEDS: LEVOTHYROXINE 88 MCG TABLET PO SCH (05:10)
[2018-06-04 05:24] LABS: Ammonia 42 UMOL/L (11-32)
[2018-06-04 05:28] LABS: Calcium 6.8 MG/DL (8.5-10.1); Osmolality,Calculated 293.7 MOS/KG (273-304); Potassium 4.7 MMOL/L (3.5-5.1)
[2018-06-04 05:46] LABS: Troponin I 0.071 NG/ML (0.00-0.045)
[2018-06-04] MEDS: INSULIN LISPRO 100 UNIT/ML SUBCUT SCH ×4 (07:49→20:18)
[2018-06-04] MEDS: APIXABAN 5 MG TABLET PO SCH ×2 (08:40→20:40)
[2018-06-04] MEDS: hydrALAZINE 25 MG TABLET PO SCH ×3 (08:40→20:40)
[2018-06-04] MEDS: ACETAMINOPHEN 325 MG TABLET PO PRN (08:41)
[2018-06-04] MEDS: ISOSORBIDE DINITRATE 20 MG TABLET PO SCH ×3 (08:41→20:40)
[2018-06-04] MEDS: ASPIRIN EC 81 MG TABLET PO SCH (08:41)
[2018-06-04] MEDS: FUROSEMIDE 40 MG TABLET PO SCH ×2 (08:41→16:31)
[2018-06-04] MEDS: PANTOPRAZOLE 40 MG TABLET PO SCH (09:03)
[2018-06-04] MEDS: CARVEDILOL 6.25 MG TABLET PO SCH (10:50)
[2018-06-04] MEDS ORDERED: CIPROFLOXACIN INJ 400 MG in PREMIX 1 EACH IV SCH (13:00)
[2018-06-04] MEDS: DEXTROSE 50% 25 GM/50 ML SYRINGE IV PRN ×3 (13:29→19:10)
[2018-06-04] MEDS: ATORVASTATIN 40 MG TABLET PO SCH (20:40)
[2018-06-04] MEDS: AMITRIPTYLINE 25 MG TABLET PO SCH (20:42)
[2018-06-04] MEDS ORDERED: DEXTROSE 10% 1,000 ML IV SCH (21:30)
[2018-06-05] MEDS: DEXTROSE 50% 25 GM/50 ML SYRINGE IV PRN ×5 (00:25→14:20)
[2018-06-05] MEDS: CLINDAMYCIN INJ 600 MG in PREMIX 1 EACH IV SCH ×3 (01:10→17:00)
[2018-06-05 05:09] LABS: Calcium 6.7 MG/DL (8.5-10.1); Potassium 4.8 MMOL/L (3.5-5.1)
[2018-06-05] MEDS: LEVOTHYROXINE 88 MCG TABLET PO SCH (06:27)
[2018-06-05] MEDS: ONDANSETRON 4 MG/2 ML VIAL IV PRN (06:55)
[2018-06-05] MEDS: cefTAZidime 500 MG in SYRINGE 1 EACH IV SCH ×2 (08:25→16:08)
[2018-06-05] MEDS: PANTOPRAZOLE 40 MG TABLET PO SCH (08:28)
[2018-06-05] MEDS: hydrALAZINE 25 MG TABLET PO SCH ×3 (08:28→20:56)
[2018-06-05] MEDS: ISOSORBIDE DINITRATE 20 MG TABLET PO SCH ×3 (08:28→20:56)
[2018-06-05] MEDS: ASPIRIN EC 81 MG TABLET PO SCH (08:28)
[2018-06-05] MEDS: APIXABAN 5 MG TABLET PO SCH (08:28)
[2018-06-05] MEDS: FUROSEMIDE 40 MG TABLET PO SCH ×2 (08:28→16:08)
[2018-06-05 16:38] LABS: INR 1.2; PT Patient Result 12.7 SECS
[2018-06-05] MEDS: DEXTROSE 10% 500 ML IV SCH ×2 (17:30→23:05)
[2018-06-05] MEDS: APIXABAN 2.5 MG TABLET PO SCH (20:56)
[2018-06-05] MEDS: ATORVASTATIN 40 MG TABLET PO SCH (20:57)
[2018-06-05] MEDS: AMITRIPTYLINE 25 MG TABLET PO SCH (20:57)
[2018-06-06] MEDS: cefTAZidime 500 MG in SYRINGE 1 EACH IV SCH ×3 (00:11→15:11)
[2018-06-06] MEDS: CLINDAMYCIN INJ 600 MG in PREMIX 1 EACH IV SCH ×2 (00:27→08:57)
[2018-06-06] MEDS: DEXTROSE 10% 500 ML IV SCH (03:47)
[2018-06-06 04:29] LABS: Basophils % 0.2 % (0.0-0.8); Eosinophils # 0.3 10*3/uL (0.0-0.87); Eosinophils % 4.3 % (0.00-10.9); Hematocrit 26.9 VOL% (35.7-47.0); Hemoglobin 8.4 GM/DL (12.0-16.0); Immature Granulocytes % 0.5 %; Immature Granulocytes Absolute 0.03 #; Lymphocytes # 0.7 10*3/uL (1.4-4.0); Lymphocytes % 11.8 % (21.3-54.2); Mean Corpuscular HGB Conc 31.2 GM/DL (32-36); Mean Corpuscular Hemoglobin 30 PG (27-34); Mean Corpuscular Volume 95.4 FL (87-102); Mean Platelet Volume 10.2 FL (9.6-12.0); Monocytes # 0.8 10*3/uL (0.11-0.8); Monocytes % 13.4 % (1.7-12.7); Neutrophils # 4.4 10*3/uL (1.4-7.4); Neutrophils % 69.8 % (38.7-73.9); Platelet Count 189 T/CUMM (130-400); Red Blood Count 2.82 MC/CUMM (3.8-5.5); Red Cell Distribution Width 15.7 % (9.3-17.3); White Blood Count 6.3 T/CUMM (4-12)
[2018-06-06] MEDS ORDERED: DEXTROSE 5% NACL 0.45% 1,000 ML IV SCH (04:30)
[2018-06-06 04:37] LABS: INR 1.1; PT Patient Result 12.1 SECS
[2018-06-06 04:51] LABS: Calcium 6.9 MG/DL (8.5-10.1); Osmolality,Calculated 284.5 MOS/KG (273-304); Potassium 4.6 MMOL/L (3.5-5.1)
[2018-06-06 04:53] LABS: Prealbumin 10.4 MG/DL (20-40)
[2018-06-06] MEDS: LEVOTHYROXINE 88 MCG TABLET PO SCH (05:29)
[2018-06-06] MEDS: PANTOPRAZOLE 40 MG TABLET PO SCH (08:54)
[2018-06-06] MEDS: ASPIRIN EC 81 MG TABLET PO SCH (08:54)
[2018-06-06] MEDS: FUROSEMIDE 40 MG TABLET PO SCH ×2 (08:54→15:10)
[2018-06-06] MEDS: APIXABAN 2.5 MG TABLET PO SCH (08:55)
[2018-06-06] MEDS: ISOSORBIDE DINITRATE 20 MG TABLET PO SCH ×4 (08:55→21:43)
[2018-06-06] MEDS: hydrALAZINE 25 MG TABLET PO SCH ×3 (08:55→21:43)
[2018-06-06] MEDS: MORPHINE 4 MG/1 ML VIAL IV PRN ×2 (08:55→14:01)
[2018-06-06] MEDS ORDERED: CARVEDILOL 6.25 MG TABLET PO ONE (09:14)
[2018-06-06] MEDS ORDERED: CIPROFLOXACIN INJ 400 MG in PREMIX 1 EACH IV SCH (10:00)
[2018-06-06] MEDS: SODIUM BICARB INJ 100 MEQ in DEXTROSE 5% 1,000 ML IV SCH ×2 (10:44→21:39)
[2018-06-06] MEDS: INSULIN LISPRO 100 UNIT/ML SUBCUT SCH ×3 (12:55→21:41)
[2018-06-06] MEDS: CARVEDILOL 6.25 MG TABLET PO SCH (16:46)
[2018-06-06] MEDS: ONDANSETRON 4 MG/2 ML VIAL IV PRN (17:57)
[2018-06-06] MEDS: HEPARIN 5,000 UNIT/1 ML VIAL SUBCUT SCH (21:40)
[2018-06-06] MEDS: ATORVASTATIN 40 MG TABLET PO SCH (21:43)
[2018-06-06] MEDS: AMITRIPTYLINE 25 MG TABLET PO SCH (21:44)
[2018-06-07] MEDS: cefTAZidime 500 MG in SYRINGE 1 EACH IV SCH ×3 (00:22→16:39)
[2018-06-07] MEDS: HEPARIN 5,000 UNIT/1 ML VIAL SUBCUT SCH ×3 (04:35→23:28)
[2018-06-07 05:24] LABS: Basophils % 0.3 % (0.0-0.8); Eosinophils # 0.3 10*3/uL (0.0-0.87); Eosinophils % 4.5 % (0.00-10.9); Hematocrit 25.7 VOL% (35.7-47.0); Hemoglobin 8.4 GM/DL (12.0-16.0); Immature Granulocytes % 0.5 %; Immature Granulocytes Absolute 0.03 #; Lymphocytes # 0.8 10*3/uL (1.4-4.0); Lymphocytes % 11.9 % (21.3-54.2); Mean Corpuscular HGB Conc 32.7 GM/DL (32-36); Mean Corpuscular Hemoglobin 30 PG (27-34); Mean Corpuscular Volume 92.4 FL (87-102); Monocytes # 0.7 10*3/uL (0.11-0.8); Monocytes % 10.9 % (1.7-12.7); Neutrophils # 4.6 10*3/uL (1.4-7.4); Neutrophils % 71.9 % (38.7-73.9); Platelet Count 193 T/CUMM (130-400); Red Blood Count 2.78 MC/CUMM (3.8-5.5); Red Cell Distribution Width 15.3 % (9.3-17.3); White Blood Count 6.4 T/CUMM (4-12)
[2018-06-07] MEDS: LEVOTHYROXINE 88 MCG TABLET PO SCH (05:32)
[2018-06-07 05:53] LABS: Calcium 7.3 MG/DL (8.5-10.1); Osmolality,Calculated 281.8 MOS/KG (273-304); Potassium 4.7 MMOL/L (3.5-5.1)
[2018-06-07] MEDS: INSULIN LISPRO 100 UNIT/ML SUBCUT SCH ×4 (08:52→23:26)
[2018-06-07] MEDS: FUROSEMIDE 40 MG TABLET PO SCH ×2 (08:55→16:39)
[2018-06-07] MEDS: ISOSORBIDE DINITRATE 20 MG TABLET PO SCH ×3 (08:55→23:30)
[2018-06-07] MEDS: hydrALAZINE 25 MG TABLET PO SCH ×3 (08:55→23:30)
[2018-06-07] MEDS: ASPIRIN EC 81 MG TABLET PO SCH (08:55)
[2018-06-07] MEDS: PANTOPRAZOLE 40 MG TABLET PO SCH (08:55)
[2018-06-07] MEDS: CARVEDILOL 6.25 MG TABLET PO SCH ×2 (08:55→16:39)
[2018-06-07] MEDS: SODIUM BICARB INJ 100 MEQ in DEXTROSE 5% 1,000 ML IV SCH ×2 (10:02→23:26)
[2018-06-07] MEDS: ATORVASTATIN 40 MG TABLET PO SCH (23:28)
[2018-06-07] MEDS: AMITRIPTYLINE 25 MG TABLET PO SCH (23:28)
[2018-06-08] MEDS: cefTAZidime 500 MG in SYRINGE 1 EACH IV SCH ×3 (01:58→17:59)
[2018-06-08 05:47] LABS: Basophils % 0.3 % (0.0-0.8); Eosinophils # 0.3 10*3/uL (0.0-0.87); Eosinophils % 4.7 % (0.00-10.9); Hematocrit 24.9 VOL% (35.7-47.0); Hemoglobin 7.9 GM/DL (12.0-16.0); Immature Granulocytes % 0.2 %; Immature Granulocytes Absolute 0.01 #; Lymphocytes # 0.8 10*3/uL (1.4-4.0); Mean Corpuscular HGB Conc 31.7 GM/DL (32-36); Mean Corpuscular Hemoglobin 29 PG (27-34); Mean Corpuscular Volume 92.6 FL (87-102); Mean Platelet Volume 10.1 FL (9.6-12.0); Monocytes # 0.7 10*3/uL (0.11-0.8); Monocytes % 12.2 % (1.7-12.7); Neutrophils # 4.1 10*3/uL (1.4-7.4); Neutrophils % 68.6 % (38.7-73.9); Platelet Count 186 T/CUMM (130-400); Red Blood Count 2.69 MC/CUMM (3.8-5.5); White Blood Count 5.9 T/CUMM (4-12)
[2018-06-08 06:10] LABS: Calcium 7.1 MG/DL (8.5-10.1); Osmolality,Calculated 281.7 MOS/KG (273-304); Potassium 4.5 MMOL/L (3.5-5.1)
[2018-06-08] MEDS: INSULIN LISPRO 100 UNIT/ML SUBCUT SCH ×4 (07:58→21:40)
[2018-06-08] MEDS: PANTOPRAZOLE 40 MG TABLET PO SCH (09:01)
[2018-06-08] MEDS: ASPIRIN EC 81 MG TABLET PO SCH (09:01)
[2018-06-08] MEDS: FUROSEMIDE 40 MG TABLET PO SCH ×2 (09:01→18:00)
[2018-06-08] MEDS: LEVOTHYROXINE 88 MCG TABLET PO SCH (09:01)
[2018-06-08] MEDS: HEPARIN 5,000 UNIT/1 ML VIAL SUBCUT SCH ×3 (09:01→21:40)
[2018-06-08] MEDS: ISOSORBIDE DINITRATE 20 MG TABLET PO SCH ×3 (09:01→21:40)
[2018-06-08] MEDS: hydrALAZINE 25 MG TABLET PO SCH ×3 (09:02→21:40)
[2018-06-08] MEDS: CARVEDILOL 6.25 MG TABLET PO SCH ×2 (09:02→18:01)
[2018-06-08] MEDS: SODIUM BICARB INJ 100 MEQ in DEXTROSE 5% 1,000 ML IV SCH (11:39)
[2018-06-08] MEDS ORDERED: ALBUTEROL/IPRATROPIUM 3 ML NEB RESP TX PRN (20:10)
[2018-06-08] MEDS: ATORVASTATIN 40 MG TABLET PO SCH (21:40)
[2018-06-08] MEDS: AMITRIPTYLINE 25 MG TABLET PO SCH (21:40)
[2018-06-08] MEDS: MORPHINE 4 MG/1 ML VIAL IV PRN (21:55)
[2018-06-09 06:11] LABS: Basophils % 0.3 % (0.0-0.8); Eosinophils # 0.2 10*3/uL (0.0-0.87); Eosinophils % 3.8 % (0.00-10.9); Hematocrit 26.7 VOL% (35.7-47.0); Hemoglobin 8.7 GM/DL (12.0-16.0); Immature Granulocytes % 0.5 %; Immature Granulocytes Absolute 0.03 #; Lymphocytes # 1.1 10*3/uL (1.4-4.0); Lymphocytes % 17.3 % (21.3-54.2); Mean Corpuscular HGB Conc 32.6 GM/DL (32-36); Mean Corpuscular Hemoglobin 30 PG (27-34); Mean Corpuscular Volume 92.7 FL (87-102); Mean Platelet Volume 9.9 FL (9.6-12.0); Monocytes # 0.8 10*3/uL (0.11-0.8); Monocytes % 11.9 % (1.7-12.7); Neutrophils # 4.2 10*3/uL (1.4-7.4); Neutrophils % 66.2 % (38.7-73.9); Platelet Count 209 T/CUMM (130-400); Red Blood Count 2.88 MC/CUMM (3.8-5.5); Red Cell Distribution Width 14.8 % (9.3-17.3); White Blood Count 6.4 T/CUMM (4-12)
[2018-06-09 06:38] LABS: INR 1.1
[2018-06-09] MEDS: HEPARIN 5,000 UNIT/1 ML VIAL SUBCUT SCH ×3 (08:08→20:41)
[2018-06-09] MEDS: LEVOTHYROXINE 88 MCG TABLET PO SCH (08:08)
[2018-06-09] MEDS: INSULIN LISPRO 100 UNIT/ML SUBCUT SCH ×4 (08:34→21:35)
[2018-06-09] MEDS: CARVEDILOL 6.25 MG TABLET PO SCH ×2 (08:59→17:36)
[2018-06-09] MEDS: FUROSEMIDE 40 MG TABLET PO SCH ×2 (09:00→15:24)
[2018-06-09] MEDS: cefTAZidime 500 MG in SYRINGE 1 EACH IV SCH ×4 (09:00→23:41)
[2018-06-09] MEDS: hydrALAZINE 25 MG TABLET PO SCH ×3 (09:00→20:40)
[2018-06-09] MEDS: PANTOPRAZOLE 40 MG TABLET PO SCH (09:00)
[2018-06-09] MEDS: ASPIRIN EC 81 MG TABLET PO SCH (09:00)
[2018-06-09] MEDS: ISOSORBIDE DINITRATE 20 MG TABLET PO SCH ×3 (09:00→20:40)
[2018-06-09] MEDS ORDERED: LIDOCAINE 1%/EPI INJ 20 ML VIAL ONE (09:14)
[2018-06-09] MEDS: SODIUM BICARB INJ 100 MEQ in DEXTROSE 5% 1,000 ML IV SCH (09:59)
[2018-06-09] MEDS ORDERED: MIDAZOLAM 2 MG/2 ML VIAL ONE (11:13)
[2018-06-09] MEDS ORDERED: fentaNYL 100 MCG/2 ML VIAL ONE (11:13)
[2018-06-09] MEDS ORDERED: KETAMINE 500 MG/10 ML VIAL ONE (11:15)
[2018-06-09] MEDS ORDERED: ETOMIDATE 40 MG/20 ML VIAL IV ONE (11:16)
[2018-06-09] MEDS: ATORVASTATIN 40 MG TABLET PO SCH (20:40)
[2018-06-09] MEDS: AMITRIPTYLINE 25 MG TABLET PO SCH (20:40)
[2018-06-10] MEDS: HEPARIN 5,000 UNIT/1 ML VIAL SUBCUT SCH ×3 (05:14→21:51)
[2018-06-10 05:32] LABS: Basophils % 0.4 % (0.0-0.8); Eosinophils # 0.2 10*3/uL (0.0-0.87); Eosinophils % 3.7 % (0.00-10.9); Hematocrit 26.6 VOL% (35.7-47.0); Hemoglobin 8.5 GM/DL (12.0-16.0); Immature Granulocytes % 0.4 %; Immature Granulocytes Absolute 0.02 #; Lymphocytes # 0.7 10*3/uL (1.4-4.0); Lymphocytes % 13.9 % (21.3-54.2); Mean Corpuscular Hemoglobin 30 PG (27-34); Mean Corpuscular Volume 92.7 FL (87-102); Mean Platelet Volume 9.7 FL (9.6-12.0); Monocytes # 0.6 10*3/uL (0.11-0.8); Monocytes % 10.6 % (1.7-12.7); Neutrophils # 3.7 10*3/uL (1.4-7.4); Platelet Count 208 T/CUMM (130-400); Red Blood Count 2.87 MC/CUMM (3.8-5.5); Red Cell Distribution Width 14.9 % (9.3-17.3); White Blood Count 5.2 T/CUMM (4-12)
[2018-06-10 05:46] LABS: Calcium 7.8 MG/DL (8.5-10.1); Osmolality,Calculated 291.1 MOS/KG (273-304); Potassium 4.8 MMOL/L (3.5-5.1)
[2018-06-10] MEDS: LEVOTHYROXINE 88 MCG TABLET PO SCH (06:07)
[2018-06-10] MEDS: INSULIN LISPRO 100 UNIT/ML SUBCUT SCH ×4 (08:31→21:50)
[2018-06-10] MEDS: FUROSEMIDE 40 MG TABLET PO SCH ×2 (08:55→15:40)
[2018-06-10] MEDS: CARVEDILOL 6.25 MG TABLET PO SCH ×2 (08:55→17:15)
[2018-06-10] MEDS: ISOSORBIDE DINITRATE 20 MG TABLET PO SCH ×3 (08:55→21:49)
[2018-06-10] MEDS: hydrALAZINE 25 MG TABLET PO SCH ×3 (08:55→21:50)
[2018-06-10] MEDS: PANTOPRAZOLE 40 MG TABLET PO SCH (08:55)
[2018-06-10] MEDS: cefTAZidime 500 MG in SYRINGE 1 EACH IV SCH ×3 (08:55→23:31)
[2018-06-10] MEDS: ASPIRIN EC 81 MG TABLET PO SCH (10:14)
[2018-06-10] MEDS: ACETAMINOPHEN 325 MG TABLET PO PRN (15:43)
[2018-06-10] MEDS: AMITRIPTYLINE 25 MG TABLET PO SCH (21:50)
[2018-06-10] MEDS: ATORVASTATIN 40 MG TABLET PO SCH (21:50)
[2018-06-11] MEDS: HEPARIN 5,000 UNIT/1 ML VIAL SUBCUT SCH ×3 (06:14→20:32)
[2018-06-11] MEDS: LEVOTHYROXINE 88 MCG TABLET PO SCH (06:14)
[2018-06-11] MEDS: INSULIN LISPRO 100 UNIT/ML SUBCUT SCH ×4 (08:49→20:30)
[2018-06-11] MEDS: CARVEDILOL 6.25 MG TABLET PO SCH ×2 (08:50→17:08)
[2018-06-11] MEDS: hydrALAZINE 25 MG TABLET PO SCH ×3 (08:50→20:30)
[2018-06-11] MEDS: FUROSEMIDE 40 MG TABLET PO SCH ×2 (08:50→15:05)
[2018-06-11] MEDS: ISOSORBIDE DINITRATE 20 MG TABLET PO SCH ×3 (08:51→20:30)
[2018-06-11] MEDS: cefTAZidime 500 MG in SYRINGE 1 EACH IV SCH ×3 (08:51→23:13)
[2018-06-11] MEDS: PANTOPRAZOLE 40 MG TABLET PO SCH (08:51)
[2018-06-11] MEDS: ASPIRIN EC 81 MG TABLET PO SCH (08:54)
[2018-06-11] MEDS ORDERED: MORPHINE 4 MG/1 ML VIAL IV PRN (14:31)
[2018-06-11] MEDS ORDERED: CHLORHEXIDINE 4% SOLN 118 ML BOTTLE TOP ONE (16:16)
[2018-06-11] MEDS: DOXYCYCLINE HYCLATE 100 MG CAPSULE PO SCH (20:30)
[2018-06-11] MEDS: ATORVASTATIN 40 MG TABLET PO SCH (20:30)
[2018-06-11] MEDS: AMITRIPTYLINE 25 MG TABLET PO SCH (20:30)
[2018-06-11] MEDS: ACETIC ACID 0.25% IRRIGATION 1,000 ML BOTTLE IRRIG SCH (20:32)
[2018-06-12] MEDS: HEPARIN 5,000 UNIT/1 ML VIAL SUBCUT SCH ×2 (04:40→12:33)
[2018-06-12 05:24] LABS: Basophils % 0.2 % (0.0-0.8); Eosinophils # 0.3 10*3/uL (0.0-0.87); Eosinophils % 4.5 % (0.00-10.9); Hematocrit 24.9 VOL% (35.7-47.0); Hemoglobin 7.8 GM/DL (12.0-16.0); Immature Granulocytes % 0.3 %; Immature Granulocytes Absolute 0.02 #; Lymphocytes % 16.1 % (21.3-54.2); Mean Corpuscular HGB Conc 31.3 GM/DL (32-36); Mean Corpuscular Hemoglobin 29 PG (27-34); Mean Corpuscular Volume 92.9 FL (87-102); Monocytes # 0.5 10*3/uL (0.11-0.8); Monocytes % 8.6 % (1.7-12.7); Neutrophils # 4.2 10*3/uL (1.4-7.4); Neutrophils % 70.3 % (38.7-73.9); Platelet Count 200 T/CUMM (130-400); Red Blood Count 2.68 MC/CUMM (3.8-5.5); Red Cell Distribution Width 14.7 % (9.3-17.3)
[2018-06-12] MEDS: LEVOTHYROXINE 88 MCG TABLET PO SCH (05:43)
[2018-06-12 06:01] LABS: Albumin 1.8 G/DL (3.4-5.0); Calcium 7.3 MG/DL (8.5-10.1); Osmolality,Calculated 296.8 MOS/KG (273-304)
[2018-06-12] MEDS: INSULIN LISPRO 100 UNIT/ML SUBCUT SCH ×4 (07:24→21:07)
[2018-06-12] MEDS: cefTAZidime 500 MG in SYRINGE 1 EACH IV SCH (09:58)
[2018-06-12] MEDS: ASPIRIN EC 81 MG TABLET PO SCH (09:59)
[2018-06-12] MEDS: hydrALAZINE 25 MG TABLET PO SCH ×3 (09:59→21:07)
[2018-06-12] MEDS: ISOSORBIDE DINITRATE 20 MG TABLET PO SCH ×3 (09:59→21:07)
[2018-06-12] MEDS: PANTOPRAZOLE 40 MG TABLET PO SCH (09:59)
[2018-06-12] MEDS: CARVEDILOL 6.25 MG TABLET PO SCH ×2 (09:59→18:05)
[2018-06-12] MEDS: FUROSEMIDE 40 MG TABLET PO SCH ×2 (09:59→18:05)
[2018-06-12] MEDS: DOXYCYCLINE HYCLATE 100 MG CAPSULE PO SCH (09:59)
[2018-06-12] MEDS: SILVER SULFADIAZINE 1% CREAM 25 GM TUBE TOP SCH (11:59)
[2018-06-12] MEDS: ACETIC ACID 0.25% IRRIGATION 1,000 ML BOTTLE IRRIG SCH ×2 (11:59→21:08)
[2018-06-12] MEDS: CALCIUM ACETATE 667 MG CAPSULE PO SCH ×2 (12:33→18:05)
[2018-06-12 17:51] LABS: Hematocrit 25.6 VOL% (35.7-47.0)
[2018-06-12 17:59] LABS: INR 1.1; Partial Thromboplastin Time 32.2 SECS (0-40)
[2018-06-12] MEDS: ATORVASTATIN 40 MG TABLET PO SCH (21:07)
[2018-06-12] MEDS: AMITRIPTYLINE 25 MG TABLET PO SCH (21:07)
[2018-06-13] MEDS: LEVOTHYROXINE 88 MCG TABLET PO SCH (05:30)
[2018-06-13 05:53] LABS: Basophils % 0.5 % (0.0-0.8); Eosinophils # 0.3 10*3/uL (0.0-0.87); Eosinophils % 4.4 % (0.00-10.9); Hematocrit 23.3 VOL% (35.7-47.0); Hemoglobin 7.4 GM/DL (12.0-16.0); Immature Granulocytes % 0.3 %; Immature Granulocytes Absolute 0.02 #; Lymphocytes # 1.3 10*3/uL (1.4-4.0); Lymphocytes % 22.8 % (21.3-54.2); Mean Corpuscular HGB Conc 31.8 GM/DL (32-36); Mean Corpuscular Hemoglobin 30 PG (27-34); Mean Corpuscular Volume 92.8 FL (87-102); Mean Platelet Volume 9.9 FL (9.6-12.0); Monocytes # 0.6 10*3/uL (0.11-0.8); Monocytes % 10.9 % (1.7-12.7); Neutrophils # 3.6 10*3/uL (1.4-7.4); Neutrophils % 61.1 % (38.7-73.9); Platelet Count 204 T/CUMM (130-400); Red Blood Count 2.51 MC/CUMM (3.8-5.5); Red Cell Distribution Width 14.4 % (9.3-17.3); White Blood Count 5.9 T/CUMM (4-12)
[2018-06-13 06:15] LABS: Albumin 1.7 G/DL (3.4-5.0); Calcium 7.7 MG/DL (8.5-10.1); Osmolality,Calculated 293.8 MOS/KG (273-304); Potassium 4.8 MMOL/L (3.5-5.1)
[2018-06-13] MEDS: INSULIN LISPRO 100 UNIT/ML SUBCUT SCH ×2 (08:00→13:00)
[2018-06-13] MEDS ORDERED: cefTAZidime 500 MG in SYRINGE 1 EACH IV SCH (08:00)
[2018-06-13] MEDS: SILVER SULFADIAZINE 1% CREAM 25 GM TUBE TOP SCH (08:45)
[2018-06-13] MEDS: ACETIC ACID 0.25% IRRIGATION 1,000 ML BOTTLE IRRIG SCH (08:45)
[2018-06-13] MEDS ORDERED: EPOETIN ALFA 10,000 UNIT/1 ML VIAL SUBCUT ONE (10:36)
[2018-06-13] MEDS ORDERED: FUROSEMIDE 80 MG TABLET ONE (10:56)
[2018-06-13] MEDS: FUROSEMIDE 40 MG TABLET PO SCH (11:08)
[2018-06-13] MEDS: PANTOPRAZOLE 40 MG TABLET PO SCH (11:08)
[2018-06-13] MEDS: CALCIUM ACETATE 667 MG CAPSULE PO SCH (11:08)
[2018-06-13] MEDS: CARVEDILOL 6.25 MG TABLET PO SCH (11:09)
[2018-06-13] MEDS: hydrALAZINE 25 MG TABLET PO SCH (11:09)
[2018-06-13] MEDS: ASPIRIN EC 81 MG TABLET PO SCH (11:09)
[2018-06-13] MEDS: ISOSORBIDE DINITRATE 20 MG TABLET PO SCH (11:09)
[2018-06-13 11:32] VITALS: BP 146/63
== END 2018-06-13 13:15 | disposition hospice, home (50) | DRG 570 ==
LOC: EDUNIT# → EDBD → N.ED 16:53 → SUATTDRO 19:42 → N.EDINP 19:42 → N.3E 21:08 → N.CC 06-03 17:19 → N.3E 06-06 19:36
PROVIDERS: ADMIT Internal Medicine; ATTEND Internal Medicine